=== PATIENT | female | born 1955 | race Caucasian/White ===

== ENCOUNTER → 2016-05-12 | Outpatient (CLI) | payer OTHER ==
[2016-05-12 12:52] LABS: Hemoglobin A1C 5.6 % (4.2-6.1)
== END | disposition home or self-care (01) ==
LOC: LABWHC1 11:57
PROVIDERS: ATTEND Internal Medicine Endocrinology, Diabetes & Metabolism
DX: E03.8 Other specified hypothyroidism (principal); E78.5 Hyperlipidemia, unspecified; R73.03 Prediabetes
CPT/HCPCS: 36415; 80061; 83036; 84443

== ENCOUNTER → 2016-07-09 | Outpatient (CLI) | payer OTHER | END | disposition home or self-care (01) | LOC: LABWHC1 11:22 | PROVIDERS: ATTEND Internal Medicine Endocrinology, Diabetes & Metabolism | DX: E03.8 Other specified hypothyroidism (principal) | CPT/HCPCS: 36415; 84443 ==

== ENCOUNTER → 2016-08-25 | Outpatient (CLI) | payer OTHER | END | disposition home or self-care (01) | LOC: LABWHC1 11:29 | PROVIDERS: ATTEND Internal Medicine Endocrinology, Diabetes & Metabolism | DX: E04.2 Nontoxic multinodular goiter (principal) | CPT/HCPCS: 36415; 84443 ==

== ENCOUNTER → 2016-11-24 | Outpatient (CLI) | payer OTHER | END | disposition home or self-care (01) | LOC: LABWHC1 11:39 | PROVIDERS: ATTEND Internal Medicine Endocrinology, Diabetes & Metabolism | DX: E03.8 Other specified hypothyroidism (principal) | CPT/HCPCS: 36415; 84443 ==

== ENCOUNTER → 2017-05-14 | Outpatient (CLI) | payer OTHER ==
--- NOTE | 2017-05-14 10:48 | MM ---
Reason for exam: additional evaluation requested from abnormal screening. Last mammogram was performed 1 month ago. History: Patient is postmenopausal. Family history of breast cancer in paternal aunt at age 70. Took hormonal contraceptives for 1 year beginning at age 19. Taking estrogen for 15 years beginning at age 34. Physical Findings: Nurse did not find any significant physical abnormalities on exam. MG Work Up Mamm w CAD LT Spot compression CC, spot compression MLO, and LM view(s) were taken of the left breast. Prior study comparison: April 26, 2017, bilateral MG screening mammo w CAD. April 09, 2016, bilateral MG screening mammo w CAD. Area of increased density upper outer left breast is improved. These results were verbally communicated with the patient and result sheet given to the patient on 05/14/17. ASSESSMENT: Benign, BI-RAD 2 RECOMMENDATION: Return to routine screening mammogram schedule for both breasts.
== END | disposition home or self-care (01) ==
LOC: RADMAMWWP 10:03
PROVIDERS: ATTEND Family Medicine
DX: R92.8 Other abnormal and inconclusive findings on diagnostic imaging of breast (principal); Z80.3 Family history of malignant neoplasm of breast
CPT/HCPCS: 77065

== ENCOUNTER → 2017-05-19 | Outpatient (CLI) | payer OTHER ==
--- NOTE | 2017-05-19 15:12 | US ---
EXAMINATION TYPE: US thyroid st tissue head/neck DATE OF EXAM: 05/19/2017 COMPARISON: US CLINICAL HISTORY: E03.8 Other Hypothyroidism, R73.03. F/U previous GLAND SIZE: Right Lobe: 2.8 x 1.1 x 1.1 cm Overall Parenchyma: heterogenous Left Lobe: 3.1 x 0.8 x 1.0 cm Overall Parenchyma: heterogeneous Isthmus Thickness: 0.3 cm NODULES RIGHT: # of nodules measured on right: 2 1. 0.6 X 0.4 x 0.6 cm hypoechoic solid nodule at the lower pole with well-defined margins; This no dule is wider than tall and shows intranodular vascularity. Prior size: 0.6 x 0.4 x 0.5 cm 2. 0.5 X 0.4 x 0.4 cm hypoechoic cystic nodule at the upper pole with poorly defined margins; This n odule is wider than tall and shows intranodular vascularity. Prior size: 0.5 x 0.4 x 0.5 cm LEFT: # of nodules measured on left: 2 1. 0.8 X 0.6 x 0.6 cm hypoechoic solid nodule at the upper pole with well-defined margins; This no dule is wider than tall and shows intranodular vascularity. Prior size: 0.6 x 0.5 x 0.5 cm 2. 0.6 X 0.4 x 0.4 cm hypoechoic cystic nodule at the upper pole with poorly defined margins; This nodule is wider than tall and shows intranodular vascularity. Prior size: 0.5 x 0.4 x 0.4 cm ISTHMUS: # of nodules measured in the isthmus: 1 1. 0.4 cm cystic nodule with well-defined margins; This nodule is wider than tall and shows no int ranodular vascularity. Prior size: 0.4 x 0.2 x 0.4 cm Bilateral neck scanned, Multiple lymph nodes bilateral lateral neck, largest 0.6 cm/ Stable sub-centi meter nodules bilaterally IMPRESSION: Nonspecific thyroid nodularity.
[2017-05-20 00:06] LABS: Hemoglobin A1C 5.5 % (4.0-6.0)
== END | disposition home or self-care (01) ==
LOC: RADUSWWP 13:36
PROVIDERS: ATTEND Internal Medicine Endocrinology, Diabetes & Metabolism
DX: E03.8 Other specified hypothyroidism (principal); R73.03 Prediabetes
CPT/HCPCS: 36415; 76536; 83036; 84443

== ENCOUNTER → 2017-11-18 | Outpatient (CLI) | payer OTHER | END | disposition home or self-care (01) | LOC: LABWHC1 11:43 | PROVIDERS: ATTEND Internal Medicine Endocrinology, Diabetes & Metabolism | DX: E03.8 Other specified hypothyroidism (principal); R73.03 Prediabetes | CPT/HCPCS: 36415; 83036; 84443 ==

== ENCOUNTER → 2017-12-01 | Outpatient (CLI) | payer OTHER ==
[2017-12-01 12:28] LABS: Basophils # (A) 0.1 k/uL (0-0.2); Basophils % (A) 1 %; Eosinophils # (A) 0.2 k/uL (0-0.7); Eosinophils % (A) 2 %; HCT 40.1 % (34.0-46.0); HGB 13.6 gm/dL (11.4-16.0); Lymphocytes # (A) 1.8 k/uL (1.0-4.8); Lymphocytes % (A) 25 %; MCH 28.4 pg (25.0-35.0); MCHC 33.9 g/dL (31.0-37.0); MCV 83.8 fL (80.0-100.0); Mean Platelet Volume 7.3; Monocytes # (A) 0.4 k/uL (0-1.0); Monocytes % (A) 5 %; Neutrophils # (A) 4.5 k/uL (1.3-7.7); Neutrophils % (A) 64 %; Platelet Count 262 k/uL (150-450); RBC 4.78 m/uL (3.80-5.40); RDW 14.7 % (11.5-15.5); WBC 7.1 k/uL (3.8-10.6)
[2017-12-01 16:49] LABS: Vitamin D 25 Hydroxy 13.1 ng/mL (30.0-100.0)
[2017-12-01 18:06] LABS: ACTH 16.2 pg/mL (0.00-45.99)
== END | disposition home or self-care (01) ==
LOC: LABWHC1 11:33
PROVIDERS: ATTEND Internal Medicine Endocrinology, Diabetes & Metabolism
DX: R53.83 Other fatigue (principal)
CPT/HCPCS: 36415; 82024; 82306; 82533; 82607; 84146; 85025

== ENCOUNTER → 2018-02-02 | Outpatient (CLI) | payer OTHER ==
[2018-02-02 12:26] LABS: ALT 41 U/L (9-52); AST 42 U/L (14-36)
[2018-02-02 12:28] LABS: Basophils # (A) 0.1 k/uL (0-0.2); Basophils % (A) 1 %; Eosinophils # (A) 0.2 k/uL (0-0.7); Eosinophils % (A) 3 %; HCT 43.6 % (34.0-46.0); HGB 14.3 gm/dL (11.4-16.0); Lymphocytes # (A) 1.9 k/uL (1.0-4.8); Lymphocytes % (A) 23 %; MCH 27.6 pg (25.0-35.0); MCHC 32.8 g/dL (31.0-37.0); MCV 84.3 fL (80.0-100.0); Mean Platelet Volume 7.6; Monocytes # (A) 0.4 k/uL (0-1.0); Monocytes % (A) 5 %; Neutrophils # (A) 5.5 k/uL (1.3-7.7); Neutrophils % (A) 67 %; Platelet Count 282 k/uL (150-450); RBC 5.17 m/uL (3.80-5.40); RDW 14.2 % (11.5-15.5); WBC 8.2 k/uL (3.8-10.6)
--- NOTE | 2018-02-02 13:01 | XR ---
EXAMINATION TYPE: XR chest 2V DATE OF EXAM: 02/02/2018 COMPARISON: 01/23/2016 HISTORY: 62-year-old female psoriasis vulgaris, on psoriasis medications. TECHNIQUE: Frontal and lateral views FINDINGS: The cardiomediastinal silhouette, aorta, and pulmonary vasculature are within normal limits. Lungs an d pleural spaces are clear. ACDF hardware. IMPRESSION: No acute cardiopulmonary process.
== END | disposition home or self-care (01) ==
LOC: LABWHC1 11:22
PROVIDERS: ATTEND Physician Assistant Medical
DX: L40.0 Psoriasis vulgaris (principal)
CPT/HCPCS: 36415; 71046; 82565; 84450; 84460; 85025

== ENCOUNTER → 2018-04-27 | Outpatient (CLI) | payer OTHER ==
--- NOTE | 2018-04-27 14:24 | MM ---
Reason for exam: screening (asymptomatic). Last mammogram was performed 11 months ago. History: Patient is postmenopausal. Family history of breast cancer in paternal aunt at age 70. Took hormonal contraceptives for 1 year beginning at age 19. Taking estrogen for 15 years beginning at age 34. Physical Findings: A clinical breast exam by your physician is recommended on an annual basis and results should be correlated with mammographic findings. MG 3D Screening Mammo W/Cad Bilateral CC and MLO view(s) were taken. Prior study comparison: May 14, 2017, left breast MG work up mamm w CAD LT. April 26, 2017, bilateral MG screening mammo w CAD. The breast tissue is heterogeneously dense. This may lower the sensitivity of mammography. There are benign appearing round vascular calcifications bilaterally. There is no discrete abnormality. ASSESSMENT: Benign, BI-RAD 2 RECOMMENDATION: Routine screening mammogram of both breasts in 1 year.
== END | disposition home or self-care (01) ==
LOC: RADMAMWWP 10:19
PROVIDERS: ATTEND Family Medicine
DX: Z12.31 Encounter for screening mammogram for malignant neoplasm of breast (principal)
CPT/HCPCS: 77063; 77067

== ENCOUNTER → 2018-05-13 | Outpatient (CLI) | payer BC | END | disposition home or self-care (01) | LOC: LABWHC1 11:39 | PROVIDERS: ATTEND Internal Medicine Endocrinology, Diabetes & Metabolism | DX: E03.8 Other specified hypothyroidism (principal) | CPT/HCPCS: 36415; 84443 ==

== ENCOUNTER → 2018-10-11 | Outpatient (CLI) | payer BC ==
--- NOTE | 2018-10-11 12:59 | US ---
EXAMINATION TYPE: US thyroid st tissue head/neck DATE OF EXAM: 10/11/2018 COMPARISON: US CLINICAL HISTORY: E04.2 Nontoxic multinodular goiter. F/U to previous GLAND SIZE: Right Lobe: 2.4 x 1.1 x 1.0 cm Overall Parenchyma: heterogenous Left Lobe: 2.9 x 0.9 x 1.0 cm Overall Parenchyma: heterogeneous Isthmus Thickness: 0.3 cm NODULES RIGHT: # of nodules measured on right: 2 1. 0.6 X 0.5 x 0.6 cm hypoechoic solid nodule at the lower pole with well-defined margins; This no dule is wider than tall and shows intranodular vascularity. Prior size: 0.6 x 0.4 x 0.6 cm 2. 0.6 X 0.3 x 0.7 cm hypoechoic mixed nodule at the upper pole with poorly defined margins; This n odule is wider than tall and shows no intranodular vascularity. Prior size: 0.5 x 0.4 x 0.4 cm LEFT: # of nodules measured on left: 2 1. 0.7 X 0.5 x 0.6 cm hypoechoic solid nodule at the upper pole with well-defined margins; This no dule is wider than tall and shows intranodular vascularity. Prior size: 0.8 x 0.6 x 0.6 cm 2. 0.8 X 0.5 x 0.6 cm hypoechoic solid nodule at the upper pole with well-defined margins; This nod ule is wider than tall and shows intranodular vascularity. Prior size: 0.6 x 0.4 x 0.4 cm ISTHMUS: # of nodules measured in the isthmus: 1 1. 0.5 cm hypoechoic nodule pole with well-defined margins; This nodule is wider than tall and bony ws no intranodular vascularity. Prior size: 0.4 cm Bilateral neck scanned, no evidence of lymphadenopathy, normal appearing lymph nodes bilaterally. Sta ble sub-centimeter nodules bilaterally. IMPRESSION: Similar size of the multiple bilateral thyroid nodules measuring up to 8 mm. These do not meet size c riteria for fine-needle aspiration and continued follow-up is recommended. Nonenlarged adjacent lymph nodes are incidentally seen.
[2018-10-12 01:10] LABS: Hemoglobin A1C 6.5 % (4.0-6.0)
== END | disposition home or self-care (01) ==
LOC: LABWHC1 11:21
PROVIDERS: ATTEND Internal Medicine Endocrinology, Diabetes & Metabolism
DX: E04.2 Nontoxic multinodular goiter (principal); E03.8 Other specified hypothyroidism; R73.03 Prediabetes
CPT/HCPCS: 36415; 76536; 83036; 84443

== ENCOUNTER → 2019-02-01 | Outpatient (CLI) | payer BC ==
[2019-02-01 12:04] LABS: Basophils % (A) 1 %; Eosinophils # (A) 0.2 k/uL (0-0.7); Eosinophils % (A) 4 %; HCT 40.5 % (34.0-46.0); HGB 13.3 gm/dL (11.4-16.0); Lymphocytes # (A) 1.7 k/uL (1.0-4.8); Lymphocytes % (A) 26 %; MCH 26.8 pg (25.0-35.0); MCHC 32.9 g/dL (31.0-37.0); MCV 81.5 fL (80.0-100.0); Mean Platelet Volume 7.4; Monocytes # (A) 0.4 k/uL (0-1.0); Monocytes % (A) 5 %; Neutrophils # (A) 4.2 k/uL (1.3-7.7); Neutrophils % (A) 63 %; Platelet Count 269 k/uL (150-450); RBC 4.97 m/uL (3.80-5.40); RDW 15.7 % (11.5-15.5); WBC 6.7 k/uL (3.8-10.6)
[2019-02-01 21:43] LABS: Hemoglobin A1C 6.2 % (4.0-6.0)
[2019-02-02 01:46] LABS: Chol/HDL Ratio 4.89; LDL Cholesterol,Calculated 123.2 mg/dL (0.0-131.0); VLDL Calculation 59.8 mg/dL (5.00-40.00)
[2019-02-02 01:47] LABS: African American GFR (CKD) 90.3 (60.0-200.0); Albumin 4.3 g/dL (3.80-4.90); Albumin/Globulin Ratio 2.15 (1.60-3.17); Anion Gap 5.2 mmol/L (4.00-12.00); BUN/Creat Ratio 13.75 Ratio (12.00-20.00); Calcium 9.1 mg/dL (8.7-10.3); Carbon Dioxide 27.8 mmol/L (21.6-31.8); Potassium 4.3 mmol/L (3.5-5.5); Total Bilirubin 0.4 mg/dL (0.3-1.2); Total Protein 6.3 g/dL (6.2-8.2)
== END | disposition home or self-care (01) ==
LOC: LABWHC1 11:17
PROVIDERS: ATTEND Internal Medicine Endocrinology, Diabetes & Metabolism
DX: E11.9 Type 2 diabetes mellitus without complications (principal); E03.8 Other specified hypothyroidism
CPT/HCPCS: 36415; 80053; 80061; 82043; 82570; 83036; 84443; 85025

== ENCOUNTER → 2020-01-22 | Outpatient (CLI) | payer MEDICARE ==
[2020-01-22 20:52] LABS: Hemoglobin A1C 6.4 % (4.0-6.0)
[2020-01-22 21:13] LABS: African American GFR (CKD) 105.4 (60.0-200.0); Albumin 4.3 g/dL (3.80-4.90); Albumin/Globulin Ratio 1.95 (1.60-3.17); Anion Gap 3.8 mmol/L (4.00-12.00); BUN/Creat Ratio 11.43 Ratio (12.00-20.00); Calcium 9.6 mg/dL (8.7-10.3); Carbon Dioxide 29.2 mmol/L (21.6-31.8); Chol/HDL Ratio 4.72; Globulin 2.2 g/dL (1.6-3.3); LDL Cholesterol,Calculated 102.6 mg/dL (0.0-131.0); Non-African American GFR(CKD) 90.9 (60.0-200.0); Potassium 4.4 mmol/L (3.5-5.5); Total Bilirubin 0.5 mg/dL (0.3-1.2); Total Protein 6.5 g/dL (6.2-8.2); VLDL Calculation 68.4 mg/dL (5.00-40.00)
[2020-01-23 00:03] LABS: Urine Creatinine 109.8 mg/dL
== END | disposition home or self-care (01) ==
LOC: LABWHC1 11:43
PROVIDERS: ATTEND Internal Medicine Endocrinology, Diabetes & Metabolism
DX: E11.9 Type 2 diabetes mellitus without complications (principal)
CPT/HCPCS: 36415; 80053; 80061; 82043; 82570; 83036; 84443

== ENCOUNTER → 2020-09-27 | Outpatient (CLI) | payer MEDICARE ==
--- NOTE | 2020-09-27 13:27 | US ---
EXAMINATION TYPE: US thyroid st tissue head/neck DATE OF EXAM: 09/27/2020 COMPARISON: 10/11/2018 CLINICAL HISTORY: E04.2 Nontoxic multinodular goiter. Goiter, F/U GLAND SIZE: Right Lobe: 2.1 x 1.0 x 0.9 cm Overall Parenchyma: heterogenous Left Lobe: 2.6 x 0.7 x 0.8 cm Overall Parenchyma: heterogeneous Isthmus Thickness: 0.2 cm NODULES RIGHT: # of nodules measured on right: 2 1. 0.7 X 0.5 x 0.7 cm, lower, solid or almost completely solid, hypoechoic nodule, which is wider t harris tall, with smooth margins, without echogenic foci. Prior size: 0.6 x 0.5 x 0.6 cm 2. 0.5 X 0.4 x 0.4 cm, upper, solid or almost completely solid, hypoechoic nodule, which is wider t harris tall, with ill-defined margins, without echogenic foci. Prior size: 0.6 x 0.3 x 0.7 cm LEFT: # of nodules measured on left: 2 1. 0.9 X 0.7 x 0.6 cm, upper, mixed cystic and solid, hypoechoic nodule, which is wider than tall, with smooth margins, without echogenic foci. Prior size: 0.8 x 0.5 x 0.6 cm 2. 0.8 X 0.7 x 0.7 cm, upper, mixed cystic and solid, hypoechoic nodule, which is wider than tall, with smooth margins, without echogenic foci. Prior size: 0.7 x 0.5 x 0.6 cm ISTHMUS: # of nodules measured in the isthmus: 1 1. 0.5 cm Cyst Bilateral neck scanned, no evidence of lymphadenopathy. Nodules bilaterally, compared to previous exa m. IMPRESSION: Multinodular thyroid gland. The thyroid gland is small bilaterally. The nodules are relatively stable in comparison to prior exam. The largest measures 9 mm. This does not meet size criteria for fine-ne edle aspiration. Continued sonographic follow-up is recommended.
== END | disposition home or self-care (01) ==
LOC: RADUSWWP 11:46
PROVIDERS: ATTEND Internal Medicine Endocrinology, Diabetes & Metabolism
DX: E04.2 Nontoxic multinodular goiter (principal)
CPT/HCPCS: 76536

== ENCOUNTER → 2020-10-21 | Outpatient (CLI) | payer MEDICARE ==
[2020-10-21 19:47] LABS: African American GFR (CKD) 110.1 (60.0-200.0); Albumin 4.1 g/dL (3.80-4.90); Albumin/Globulin Ratio 1.71 (1.60-3.17); Anion Gap 7.2 mmol/L (4.00-12.00); Carbon Dioxide 28.8 mmol/L (21.6-31.8); Chol/HDL Ratio 4.74; Globulin 2.4 g/dL (1.6-3.3); Total Bilirubin 0.4 mg/dL (0.3-1.2); Total Protein 6.5 g/dL (6.2-8.2)
[2020-10-22 01:15] LABS: Urine Creatinine 146.9 mg/dL
== END | disposition home or self-care (01) ==
LOC: LABWHC1 11:56
PROVIDERS: ATTEND Internal Medicine Endocrinology, Diabetes & Metabolism
DX: E11.9 Type 2 diabetes mellitus without complications (principal); E03.8 Other specified hypothyroidism
CPT/HCPCS: 36415; 80053; 80061; 82043; 82570; 83036; 84443

== ENCOUNTER → 2020-10-21 | Outpatient (CLI) | payer MEDICARE ==
--- NOTE | 2020-10-23 15:01 | MM ---
Reason for exam: screening (asymptomatic). Last mammogram was performed 2 years and 6 months ago. History: Patient is postmenopausal. Family history of breast cancer in paternal aunt at age 70. Took hormonal contraceptives for 1 year beginning at age 19. Taking estrogen for 15 years beginning at age 34. Physical Findings: A clinical breast exam by your physician is recommended on an annual basis and results should be correlated with mammographic findings. MG 3D Screening Mammo W/Cad Bilateral CC and MLO view(s) were taken. Prior study comparison: April 27, 2018, bilateral MG 3d screening mammo w/cad. May 14, 2017, left breast MG work up mamm w CAD LT. There are scattered fibroglandular densities. No significant changes when compared with prior studies. ASSESSMENT: Benign, BI-RAD 2 RECOMMENDATION: Routine screening mammogram of both breasts in 1 year.
== END | disposition home or self-care (01) ==
LOC: RADMAMWWP 11:42
PROVIDERS: ATTEND Family Medicine
DX: Z12.31 Encounter for screening mammogram for malignant neoplasm of breast (principal); Z78.0 Asymptomatic menopausal state; Z80.3 Family history of malignant neoplasm of breast
CPT/HCPCS: 77063; 77067

== ENCOUNTER → 2021-03-10 | Outpatient (CLI) | payer MEDICARE ==
[2021-03-10 22:14] LABS: Microalbumin Creatinine Ratio <30 mg/g Creat (0-30); Urine Creatinine 85.7 mg/dL (28.0-217.0)
[2021-03-10 23:34] LABS: African American GFR (CKD) 88.6 (60.0-200.0); Albumin 4.4 g/dL (3.8-4.9); Albumin/Globulin Ratio 1.86 (1.60-3.17); Anion Gap 13.3 mmol/L (4.00-12.00); BUN/Creat Ratio 9.89 Ratio (12.00-20.00); Blood Urea Nitrogen 7.9 mg/dL (9.0-27.0); Calcium 9.7 mg/dL (8.7-10.3); Carbon Dioxide 23.9 mmol/L (21.6-31.8); Chol/HDL Ratio 5.93 Ratio; Globulin 2.4 g/dL (1.6-3.3); HDL Cholesterol 40.8 mg/dL (40.00-60.00); Non-African American GFR(CKD) 76.5 (60.0-200.0); Potassium 4.7 mmol/L (3.5-5.5); Total Bilirubin 0.4 mg/dL (0.30-1.20); Total Protein 6.7 g/dL (6.2-8.2)
== END | disposition home or self-care (01) ==
LOC: LABWHC1 11:59
PROVIDERS: ATTEND Internal Medicine Endocrinology, Diabetes & Metabolism
DX: E11.9 Type 2 diabetes mellitus without complications (principal)
CPT/HCPCS: 36415; 80053; 80061; 82043; 82570; 83036; 83721; 84443

== ENCOUNTER → 2021-08-11 | Outpatient (CLI) | payer MEDICARE | END | disposition home or self-care (01) | LOC: LABPAT 11:33 | PROVIDERS: ATTEND Orthopaedic Surgery | DX: Z01.812 Encounter for preprocedural laboratory examination (principal); Z22.322 Carrier or suspected carrier of Methicillin resistant Staphylococcus aureus; M17.11 Unilateral primary osteoarthritis, right knee | CPT/HCPCS: 87070 ==

== ENCOUNTER 2021-08-18 10:41 | Day surgery (SDC) | payer MEDICARE ==
[2021-08-13 16:17] VITALS: BMI 26.2
--- NOTE | 2021-08-17 12:42 | HP ---
HISTORY AND PHYSICAL DATE OF SURGERY: 08/18/2021 Amanda Costello is a 66-year-old patient seen with symptomatic right knee osteoarthritis. We discussed options for treatment. She elected to proceed with right total knee arthroplasty. Consent was obtained. Medical clearance was provided by Dr. Sanders. PAST MEDICAL HISTORY: Hypertension, gastroesophageal reflux disease, hypothyroidism. PAST SURGICAL HISTORY: Carpal tunnel release, knee arthroscopy, hysterectomy, cervical fusion. DAILY MEDICATIONS: Synthroid, aspirin, amlodipine, estradiol, lisinopril, omeprazole. ALLERGIES: CODEINE, SULFA. SOCIAL HISTORY: She denies tobacco use. PHYSICAL EVALUATION OF THE RIGHT KNEE: Range of motion is negative 2/3 to 100. Mild effusion. Tenderness, medial joint line. Crepitus, medial and patellofemoral compartments with range of motion. Pain with patellofemoral compression. Ligaments stable. Hip rotation without pain. Distal neurovascular exam is intact. Radiographs of the right knee reveal severe osteoarthritic changes. IMPRESSION: 1. Right knee osteoarthritis. 2. Hypertension. 3. Hyperlipidemia. 4. Hypothyroidism. PLAN: Right total knee arthroplasty. MMODL / IJN: [id number] /
[~2021-08-18 10:41] MED LIST: ACETAMINOPHEN TAB 500 MG TAB PO PRN; DEXAMETHASONE SOD PHOSPHATE 4 MG/ML 1 ML VIAL IV ONE; MELOXICAM 7.5 MG TAB PO PRN; MIDAZOLAM 2 MG/2 ML VIAL IV PRN; ONDANSETRON 4 MG/2 ML VIAL IVP ONE; TRANEXAMIC ACID IN NACL,ISO-OS 1,000 MG in SALINE 1 100ML.BAG IVPB PRN; fentaNYL (PF) 50 MCG/ML 2 ML AMP IV PRN
[2021-08-18] MEDS: LACTATED RINGERS 1,000 ML IV SCH (11:03)
[2021-08-18 11:19] LABS: Glucose,Whole Blood 122 mg/dL (75-99)
[2021-08-18] MEDS ORDERED: MIDAZOLAM 2 MG/2 ML VIAL IV ONE (11:51)
[2021-08-18 12:00] LABS: Prothrombin Time 10.8 sec (9.0-12.0)
--- NOTE | 2021-08-18 12:44 | P.ANPRN ---
Procedure Note - Anesthesia - Nerve Block Performed Right Adductor Canal Infusion Time Out Performed: Yes Date of Procedure: 08/18/21 Procedure Start Time: 11:50 Procedure Stop Time: 12:02 Location of Patient: PreOp Indication: Acute Post-Operative Pain, Requested by Surgeon Sedation Type: Sedate with meaningful contact maintained Preparation: Sterile Prep, Sterile Dressing Position: Supine Catheter: Indwelling Needle Types: Jodi Needle Gauge: 18 Ultrasound used to visualize needle placement: Yes Ultrasound used to observe medication spread: Yes Injectate: 0.5% Ropivacaine (see comment for volume) (15 ml + decadron 4 mg) Blood Aspirated: No Pain Paresthesia on Injection Noted: No Resistance on Injection: Normal Image Stored and Saved: Yes Events: Uneventful and Well Tolerated Right iPack Single Time Out Performed: Yes Date of Procedure: 08/18/21 Procedure Start Time: 12:05 Procedure Stop Time: 12:20 Location of Patient: PreOp Indication: Acute Post-Operative Pain, Requested by Surgeon Sedation Type: Sedate with meaningful contact maintained Preparation: Sterile Prep, Sterile Dressing Position: Left Lateral Catheter: None Needle Types: Facet Needle Gauge: 20 Ultrasound used to visualize needle placement: Yes Ultrasound used to observe medication spread: Yes Injectate: 0.5% Ropivacaine (see comment for volume) (15 ml + decadron 4 mg) Blood Aspirated: No Pain Paresthesia on Injection Noted: No Resistance on Injection: Normal Image Stored and Saved: Yes Events: Uneventful and Well Tolerated
[2021-08-18] MEDS ORDERED: SCOPOLAMINE 1 MG/72 HR PATCH TRANSDERM ONE (13:01)
[2021-08-18] MEDS ORDERED: DEXAMETHASONE SOD PHOSPHATE 4 MG/ML 1 ML VIAL ONE (13:04)
[2021-08-18] MEDS ORDERED: NEOSTIGMINE 1 MG/ML 10 ML VIAL ONE (13:04)
[2021-08-18] MEDS ORDERED: NALOXONE 0.4 MG/ML 1 ML VIAL ONE (13:04)
[2021-08-18] MEDS ORDERED: PROPOFOL 10 MG/ML 20 ML VIAL IV ONE (13:04)
[2021-08-18] MEDS ORDERED: SUCCINYLCHOLINE CHLORIDE 100 MG/5 ML SYR IV ONE (13:04)
[2021-08-18] MEDS ORDERED: fentaNYL (PF) 50 MCG/ML 2 ML AMP ONE (13:04)
[2021-08-18] MEDS ORDERED: TRANEXAMIC ACID IN NACL,ISO-OS 1,000 MG/100 ML BAG ONE (13:04)
[2021-08-18] MEDS ORDERED: ROCURONIUM 10 MG/ML (5 ML VIAL) IV ONE (13:04)
[2021-08-18] MEDS ORDERED: HYDROmorphone (PF) 1 MG/ML ONE (13:04)
[2021-08-18] MEDS ORDERED: MIDAZOLAM 2 MG/2 ML VIAL ONE (13:04)
[2021-08-18] MEDS ORDERED: LIDOCAINE 1% INJ 10MG/ML (20 ML MDV) ONE (13:04)
[2021-08-18] MEDS ORDERED: GLYCOPYRROLATE 0.2 MG/ML 2 ML VIAL ONE (13:04)
[2021-08-18] MEDS ORDERED: ROPIVACAINE 5 MG/ML 30 ML VIAL ONE (13:04)
[2021-08-18] MEDS ORDERED: ROPIVACAINE 0.2%-NS ON-Q PUMP 1,090 MG, EMPTY PAIN BALL 1 EACH MISCELLANE PRN (13:20)
[2021-08-18] MEDS ORDERED: ceFAZolin 1,000 MG in SODIUM CHLORIDE 0.9% 1,000 ML IRRIGATION ONE (13:33)
[2021-08-18] MEDS ORDERED: LACTATED RINGERS 1,000 ML IV ONE ×2 (14:49)
[2021-08-18] MEDS ORDERED: HYDROmorphone 0.2 MG/1 ML SYRINGE IVP PRN (14:49)
[2021-08-18] MEDS ORDERED: HYDROcodone/APAP 5-325MG 1 EACH TAB PO PRN (14:49)
[2021-08-18] MEDS ORDERED: NALOXONE 0.4 MG/ML 1 ML VIAL IV PRN (14:49)
[2021-08-18] MEDS ORDERED: HYDROmorphone 0.5 MG/0.5 ML SYRINGE IVP PRN ×2 (14:49)
[2021-08-18] MEDS ORDERED: ONDANSETRON 4 MG/2 ML VIAL IVP PRN (14:49)
--- NOTE | 2021-08-18 14:49 | P.OP ---
Date of Procedure: 08/18/21 Preoperative Diagnosis: Right knee osteoarthritis Postoperative Diagnosis: Right knee osteoarthritis Procedure(s) Performed: Right total knee arthroplasty Implants: 1. Depuy attune size 5 narrow right cruciate retaining cemented femur 2. Depuy attune size 5 fixed bearing cemented tibial baseplate 3. Cunningham attune size 5 fixed bearing cruciate retaining 8 mm polyethylene tibial insert 4. Cunningham attune 35 mm all polyethylene cemented patella Anesthesia: GETA, regional (Interscalene block+Ipack block), local Surgeon: Rasta Garcia Dielectric Machine Operator #1: Genaro Shipman Estimated Blood Loss (ml): 50 Pathology: other (Bone) Condition: stable Disposition: PACU Indications for Procedure: 66-year-old patient seen with symptomatic right knee osteoarthritis. After treatment options were discussed, she elected to proceed with total knee arthroplasty. Operative Findings: See description of procedure Description of Procedure: Patient was taken to the operative suite after having an adductor canal catheter placed by the department of anesthesia as well as and Ipack block for postoperative pain management. Patient underwent a general anesthetic by the department of anesthesia. Patient was given preoperative IV intake antibiotics and TXA. A well-padded tourniquet was placed about the right lower extremity. The lower extremity was then prepped and draped in the normal sterile orthopedic fashion. The extremity was elevated, a tourniquet was insufflated to 300. A standard anterior incision was made sharply through skin. Dissection was taken down through the subcutaneous soft tissues down to the extensor mechanism. A medial arthrotomy was performed, patella was everted and knee was flexed. There was advanced osteoarthritis noted. I introduced my distal intramedullary femoral drill. I then introduced the distal femoral cutting jig. Jovon GRIDER secured the cutting jig with 2 pins. I held retractors in position while Jovon GRIDER performed the distal femoral resection through the guide area we now removed her distal femoral cutting guide. We now placed our 4-in-1 femoral cutting block and positioned and it was secured with 2 pins by Jovon GRIDER while I held the block in position. The distal femoral finishing was now completed. A proximal tibial cutting guide was positioned. I held the guide in the appropriate position with both hands well Jovon GRIDER inserted stabilizing pins into the guide. Proximal tibial cut was made. We now placed a trial femoral component into position, along with an appropriate size tibial tray and insert. We now took the knee through range of motion and had full extension good flexion and good overall soft tissue balance noted. The patella was everted and stabilized with 2 towel clips held by Jovon GRIDER while I performed a flush with patellar quad tendon utilizing a fresh sawblade. We templated the patella, appropriate drill holes were made. An appropriate trial patella was positioned, knee was taken through full range of motion with the patella tracking very nicely. The trial patella was removed. Drill holes were made through the femoral component. All trial components were removed after marking off the appropriate rotation of the tibia. Retractors were now positioned along the proximal tibia. An appropriate keel punch was made with the appropriate size tibial guide by myself on Jovon GRIDER assisted by holding retractors. At this point appropriate size implants were chosen and opened. The joint was irrigated copiously with pulse lavage mechanical irrigation. The posterior capsule was infiltrated with local analgesic. The wound was irrigated with pulse lavage mechanical irrigation. We mixed antibiotic methylmethacrylate. We placed the knee into flexion. We placed multiple retractors assisted by Jovon GRIDER to expose the proximal tibia. Once the methyl methacrylate was ready, the tibial component was cemented into place removing any excess methylmethacrylate form by both myself and Jovon GRIDER. The femoral component was cemented into place removing the removing any excess methylmethacrylate performed by both myself and Jovon GRIDER. We then inserted the appropriate size polyethylene tibial insert. We made sure that it was locked into position. We took the knee into full extension, and then back in a flexion making sure we had removed any excess methylmethacrylate. The patellar component was then cemented down and secured with clamp. Excess methylmethacrylate removed. We kept the knee in full extension, patellar clamp in position until methylmethacrylate had hardened. Once it had hardened the patellar clamp was removed. The knee was taken through full range of motion. The patella tracked nicely. There was good soft tissue balancing. The tourniquet was now released. Additional hemostasis was achieved via electrocautery. A second gram of TXA was given. The wound again was irrigated with pulse lavage mechanical irrigation. The superficial soft tissues were infiltrated local analgesic. The extensor mechanism was repaired with Ethibond. We checked the repair with range of motion and it was stable. The subcutaneous soft tissues were repaired with Vicryl in layers. The skin was approximated with pernio/Dermabond. Sterile dressings were applied followed by loose web roll and Fabricio bandage. The patient was transferred to a bed, and taken to recovery in stable and satisfactory condition. Jovon GRIDER assisted with this complex procedure.
[2021-08-18] MEDS ORDERED: HYDROmorphone 0.5 MG/0.5 ML SYRINGE IVP ONE ×2 (15:40→15:49)
[2021-08-18 15:51] LABS: Glucose,Whole Blood 142 mg/dL (75-99)
[2021-08-18] MEDS ORDERED: FLUTICASONE 50MCG/SPRAY NASAL 16GM EA NOSTRIL PRN (18:04)
[2021-08-18] MEDS ORDERED: EVOLOCUMAB 140 MG/ML SQ SCH (18:15)
[2021-08-18] MEDS ORDERED: SECUKINUMAB 150 MG/ML SQ SCH (18:15)
--- NOTE | 2021-08-18 18:24 | XR ---
EXAMINATION TYPE: XR knee limited RT DATE OF EXAM: 08/18/2021 COMPARISON: 07/18/2021 HISTORY: Knee surgery TECHNIQUE: 2 views FINDINGS: There is right total knee prosthesis. Components appear in good position. IMPRESSION: No complicating process seen.
[2021-08-18] MEDS: busPIRone HCl 10 MG TAB PO SCH (20:09)
[2021-08-18] MEDS: metFORMIN 500 MG TAB PO SCH (20:10)
[2021-08-18] MEDS ORDERED: CITALOPRAM HYDROBROMIDE 20 MG TAB PO SCH (21:00)
[2021-08-18] MEDS ORDERED: PANTOPRAZOLE 40 MG TABLET PO SCH (21:00)
[2021-08-18] MEDS ORDERED: POTASSIUM CHLORIDE ER 10 MEQ TAB.ER.PRT PO SCH (21:00)
[2021-08-19] MEDS: HYDROcodone/APAP 7.5-325MG 1 EACH TAB PO PRN ×2 (03:14→08:26)
[2021-08-19] MEDS: LACTATED RINGERS 1,000 ML IV SCH (04:35)
[2021-08-19] MEDS ORDERED: THYROID, PORK 30 MG TAB PO SCH (06:30)
[2021-08-19] MEDS ORDERED: LIOTHYRONINE SODIUM 5 MCG TAB PO SCH (06:30)
[2021-08-19 07:35] VITALS: RESP 18; TEMP 98.1
[2021-08-19] MEDS: metFORMIN 500 MG TAB PO SCH (08:27)
[2021-08-19] MEDS: busPIRone HCl 10 MG TAB PO SCH (08:28)
--- NOTE | 2021-08-19 08:36 | P.PN ---
Subjective Progress Note Date: 08/19/21 Principal diagnosis: Status post right total knee arthroplasty Patient was evaluated today at bedside, she is resting very comfortably. She's been up in about a few times to use the restroom. she currently denies any headaches, lightheadedness, chest pain or shortness of breath. The pain is controlled well at this time. We discussed her ALLERGY with codeine, she's had a few doses of Alb[place] and no adverse effects at this time. Objective - Vital Signs Vital signs: Vital Signs Temp 98.1 F 08/19/21 07:33 Pulse 72 08/19/21 08:00 Resp 18 08/19/21 08:00 BP 141/87 08/19/21 07:33 Pulse Ox 92 L 08/19/21 07:33 Intake & Output 08/18/21 08/19/21 08/19/21 18:59 06:59 18:59 Intake Total 2100 100 Output Total 50 Balance 2049 100 Weight 66.6 kg Intake: IV 2049 Intake, IV Titration 50 100 Amount ceFAZolin 2 gm In Sodium 50 100 Chloride 0.9% 50 ml @ 100 mls/hr IVPB Q8H [facility] Rx#: [id number] Output: Estimated Blood Loss 50 Other: Voiding Method Toilet Toilet # Voids 1 3 - Exam Right lower extremity: Incision is clean, dry, and intact. The optifoam dressing is in good condition. There is minimal soft tissue swelling and ecchymosis surrounding the medial and lateral aspects of the incision. Calf is soft, no tenderness with palpation. Plantar flexion, dorsiflexion, EHL, FHL are intact. Sensory exam to light touch throughout the extremity is intact, dorsal pedis pulses 2+. - Labs Labs: Abnormal Lab Results - Last 24 Hours (Table) 08/18/21 08/18/21 Range/Units 11:16 15:44 POC Glucose (mg/dL) 122 H 142 H (75-99) mg/dL Assessment and Plan Assessment: Postoperative day #1 status post right total knee arthroplasty Plan: Pain control, plan for discharge home on Albion 7.5 mg/325 mg DVT prophylaxis, we'll increase aspirin 81 mg twice a day, we'll likely do this for 1 month Wound care instructions were discussed, this to include showering along with icing and elevating Home health care, this including therapy and nursing after discharge Encourage incentive spirometer Discharge planning: Pending patient as well as physical therapy, we'll discharge home today Time with Patient: Less than 30
[2021-08-19] MEDS ORDERED: ENOXAPARIN 40 MG/0.4 ML SYRINGE SQ SCH (09:00)
[2021-08-19] MEDS ORDERED: lisinopriL 20 MG TAB PO SCH (09:00)
[2021-08-19] MEDS ORDERED: amLODIPine 5 MG TAB PO SCH (09:00)
[2021-08-19 12:02] VITALS: BP 144/93; PULSE 100
== END 2021-08-19 12:51 | disposition home health service (06) ==
LOC: OR 10:41 → 5NMEDONC 15:29 → OR 08-19 12:51
PROVIDERS: ATTEND Orthopaedic Surgery
DX: M17.11 Unilateral primary osteoarthritis, right knee (principal); I10 Essential (primary) hypertension; E78.5 Hyperlipidemia, unspecified; E03.9 Hypothyroidism, unspecified; K21.9 Gastro-esophageal reflux disease without esophagitis; E11.9 Type 2 diabetes mellitus without complications; L40.9 Psoriasis, unspecified; R42 Dizziness and giddiness; Z90.710 Acquired absence of both cervix and uterus; Z98.1 Arthrodesis status; F17.200 Nicotine dependence, unspecified, uncomplicated; Z98.890 Other specified postprocedural states; Z79.82 Long term (current) use of aspirin; Z79.890 Hormone replacement therapy; Z79.899 Other long term (current) drug therapy; Z88.5 Allergy status to narcotic agent; Z88.2 Allergy status to sulfonamides
CPT/HCPCS: 97162; 64999; 64448; 76942; 85610; 88300; 73560; 27447; C1776; C1713 ×2; J2250; J1100; J2310; J2710; J0690 ×3; J2405; J2001; J1650; J3010; J1170 ×2; J2795 ×2; J0330; J2704

== ENCOUNTER → 2021-11-03 | Outpatient (CLI) | payer MEDICARE ==
--- NOTE | 2021-11-04 01:04 | XR ---
EXAMINATION TYPE: XR lumbosacral spine min 4V DATE OF EXAM: 11/03/2021 COMPARISON: NONE INDICATION: Pain and numbness for 3 months. Low back pain. TECHNIQUE: 5 views of the lumbar spine. FINDINGS: Moderate levoscoliosis of the lumbar spine with apex at L2-3 level. No significant anterolisthesis or retrolisthesis. No definite vertebral body collapse or acute displaced fracture. Severe degenerative changes at L2-3 level with opposing endplate osteophytosis, markedly degenerated disc and subchondral sclerotic changes. Suspected bilateral L4-5 facet osteoarthropathy. Arterial atherosclerotic calcifications. 5 mm left r enal calculus versus soft tissue calcification. IMPRESSION: Degenerative changes of the lumbar spine as detailed above. Further MRI assessment can be considered if clinically required.
== END | disposition home or self-care (01) ==
LOC: RADXRMAIN 12:27
PROVIDERS: ATTEND Family Medicine
DX: M47.816 Spondylosis without myelopathy or radiculopathy, lumbar region (principal)
CPT/HCPCS: 72110

== ENCOUNTER → 2021-11-14 | Outpatient (CLI) | payer MEDICARE ==
[2021-11-14 17:55] LABS: Basophils # (A) 0.06 X 10*3/uL (0.00-0.10); Basophils % (A) 0.5 %; Eosinophils # (A) 0.14 X 10*3/uL (0.04-0.35); Eosinophils % (A) 1.2 %; HCT 43.6 % (37.2-46.3); HGB 13.3 g/dL (12.0-15.0); Immature Grans, Automated 0.4 %; Lymphocytes # (A) 2.61 X 10*3/uL (0.90-5.00); MCH 24.5 pg (27.0-32.0); MCHC 30.5 g/dL (32.0-37.0); MCV 80.3 fL (80.0-97.0); Monocytes # (A) 0.78 X 10*3/uL (0.20-1.00); Monocytes % (A) 6.6 %; NRBC Per 100 WBC 0 /100 WBCS (0.0-0.0); Neutrophils # (A) 8.24 X 10*3/uL (1.80-7.70); Neutrophils % (A) 69.3 %; Platelet Count 384 X 10*3/uL (140-440); RBC 5.43 X 10*6/uL (4.10-5.20); RDW 20.6 % (11.5-14.5); WBC 11.88 X 10*3/uL (4.50-10.00)
[2021-11-14 18:04] LABS: African American GFR (CKD) 103.9 (60.0-200.0); Non-African American GFR(CKD) 89.7 (60.0-200.0)
== END | disposition home or self-care (01) ==
LOC: LABWHC1 12:57
PROVIDERS: ATTEND Family Medicine
DX: L40.0 Psoriasis vulgaris (principal)
CPT/HCPCS: 36415; 82565; 84450; 84460; 85025; 86480

== ENCOUNTER → 2021-11-14 | Outpatient (CLI) | payer MEDICARE ==
--- NOTE | 2021-11-15 08:49 | US ---
EXAMINATION TYPE: US abdomen complete DATE OF EXAM: 11/14/2021 COMPARISON: NONE CLINICAL HISTORY: RUQ pain R10.11. Nausea, pain. Hx kidney stone. EXAM MEASUREMENTS: Liver Length: 15.8 cm Gallbladder Wall: 0.17 cm CBD: 0.37 cm Spleen: 10.2 cm Right Kidney: 9.3 x 5.6 x 3.9 cm Left Kidney: 11.4 x 5.3 x 5.4 cm Limited due to gas. Pancreas: Limited due to gas. Liver: Appears coarse in echotexture. Increased attenuation. Limited due to gas. Gallbladder: There appears to be cluster of hyperechoic areas versus single hyperechoic area with po sterior shadowing within the gallbladder: 1.6 x 1.7 x 0.8 cm. Area appears to be mobile. Evidence for sonographic Cai's sign: No CBD: Portions seen appear wnl Spleen:Appears wnl Right Kidney: No hydronephrosis or masses seen Left Kidney: No hydronephrosis or masses seen Upper IVC: Appears wnl Abd Aorta: Portions seen appear wnl. Limited due to gas. No aneurysm in the visualized portion of abdominal aorta. IVC is seen near the hepatic dome. Visualiz ed portion of pancreas shows no mass or ductal dilatation. Portions are obscured by overlying bowel g as. Visualized liver heterogeneously hyperechoic without mass or ductal dilatation. There is shadowing la rge gallstone. No pericholecystic fluid or abnormal gallbladder wall thickening. Kidneys show no hydronephrosis. Slightly asymmetric smaller right kidney is noted. Spleen is normal i n size. IMPRESSION: 1. Single mobile gallstone without ultrasound evidence for acute cholecystitis. 2. No hydronephrosis or definitive shadowing renal calculi identified. 3. Heterogeneous hyperechoic appearance of liver consistent with diffuse fatty infiltration and/or un derlying hepatocellular disease.
== END | disposition home or self-care (01) ==
LOC: RADUSWWP 12:13
PROVIDERS: ATTEND Family Medicine
DX: K80.20 Calculus of gallbladder without cholecystitis without obstruction (principal)
CPT/HCPCS: 76700

== ENCOUNTER → 2021-11-20 | Outpatient (CLI) | payer MEDICARE ==
--- NOTE | 2021-11-20 16:26 | MR ---
EXAMINATION TYPE: MR lumbar spine wo con DATE OF EXAM: 11/20/2021 COMPARISON: Lumbar spine x-ray November 03, 2021 HISTORY: low back pain and BLE pain for 3-4 months, no trauma, no surgery TECHNIQUE: Multiplanar, multisequence imaging of the lumbar spine is performed without IV contrast. FINDINGS: There is levoconvex scoliosis centered at L2-L3 level redemonstrated. Sagittal images of th e lumbar spine show vertebral body height to appear satisfactory. Multilevel disc desiccation is seen . Moderate to advanced disc space narrowing L2-L3 level redemonstrated. Mild disc space narrowing L3- L4 and L5-S1 levels redemonstrated The conus medullaris is normal in position and signal ending mid L 1 level. Some heterogeneous Modic type III endplate changes left L2-L3 level noted. Mild to moderate multilevel anterior spurring greatest at L2-L3 level Axial images show T12-L1 and L1-L2 levels to appear within normal limits. Axial images at the L2-L3 level show mild to moderate right greater than left facet arthropathy and l igamentum flavum hypertrophy effacing the right posterolateral thecal sac. There is [id number] broad disc bulge with right paracentral disc protrusion component effacing the anterior thecal sac. T here is mild right-sided neural foraminal narrowing. Left-sided neural foramen is patent. Axial images at L3-L4 level shows mild broad-based disc bulge mildly effacing the anterior thecal sac along with mild facet arthropathy and ligamentum flavum hypertrophy. There is mild asymmetric right- sided anterior inferior neural foraminal narrowing. Axial images at L4-L5 level show mild to moderate facet arthropathy bilaterally. There is small centr al disc protrusion minimally effacing the anterior thecal sac. Patent bilateral neural foramina. Axial images at the L5-S1 level shows [id number] facet arthropathy bilaterally. There is focal central disc protrusion with spinal canal is preserved. Bilateral neural foramina show asymmetric mil [id number] narrowing on the left. Paraspinal muscle bulk is maintained. IMPRESSION: Levoconvex scoliosis with multilevel degenerative changes in the mid to lower lumbar spin e as detailed above.
== END | disposition home or self-care (01) ==
LOC: RADMRIMAIN 15:01
PROVIDERS: ATTEND Family Medicine
DX: M41.86 Other forms of scoliosis, lumbar region (principal); M48.061 Spinal stenosis, lumbar region without neurogenic claudication; M51.26 Other intervertebral disc displacement, lumbar region
CPT/HCPCS: 72148

== ENCOUNTER → 2022-01-05 | Outpatient (CLI) | payer MEDICARE ==
--- NOTE | 2022-01-05 16:05 | CT ---
EXAMINATION TYPE: CT lumbar spine wo con DATE OF EXAM: 01/05/2022 3:58 PM COMPARISON: HISTORY: M41.80 SCOLIOSIS M54.[address] DLP: 946 mGycm Automated exposure control for dose reduction was used. Unenhanced CT of the lumbar spine was performed. Bone and soft tissue window settings are submitted as well as coronal and sagittal reconstructions. L1-L2: Normal disc space height. No disc herniation protrusion or central stenosis. No facet joint arthropathy. No evidence for foraminal encroachment. L2-L3: Severe degenerative disc space narrowing. Severe endplate sclerosis inferior endplate of L2 an d superior endplate of L3. Ventral and dorsal spondylosis. Mild effacement ventral thecal sac without evidence for herniation or protrusion. No central stenosis.Mild bilateral foraminal encroachment. L3-L4: Moderate degenerative disc space narrowing. Mild circumferential disc bulge greatest posterior ly. Mild effacement ventral thecal sac. No evidence for herniation or central stenosis. Foramina are patent. L4-L5: Moderate degenerative disc space narrowing. Mild circumferential disc bulge greatest posterior ly. Mild effacement ventral thecal sac. No evidence for herniation or central stenosis. Foramina are patent. L5-S1: Severe degenerative disc space narrowing and vacuum disc identified. Posterior disc bulge with effacement ventral thecal sac. Left lateral recess stenosis. Mild left-sided foraminal encroachment. No herniation or central stenosis. No evidence for osseous fracture within the [id number]. No bony destructive process seen. IMPRESSION: 1. Multilevel degenerative disc disease as discussed. 2. Left lateral recess stenosis at L5-S1. See above.
== END | disposition home or self-care (01) ==
LOC: RADCTMAIN 15:39
PROVIDERS: ATTEND Orthopaedic Surgery
DX: M51.37 Other intervertebral disc degeneration, lumbosacral region (principal); G95.89 Other specified diseases of spinal cord
CPT/HCPCS: 72131

== ENCOUNTER → 2022-01-07 | Outpatient (CLI) | payer MEDICARE ==
[2022-01-07 09:04] VITALS: BP 125/79; PULSE 65; RESP 18; TEMP 98.5
--- NOTE | 2022-01-07 15:01 | P.PAINPG ---
PQRS Measure Charge Sheet Comment: HISTORY OF PRESENT ILLNESS: 66 yr old female w at side as a referral from Dr. Gayle for severe and chronic LBP secondary to spondylosis, disc bulges, DDD and facet arthropathy without myelopathy for evaluation. Pt states her pain is localized in the mid aspect of the lumbar spine w radiation towards the lower lumbar spine and occasional R & L side paraspinal muscles. Pain also radiates towards either groin and either LEs. It is 4/10 in intensity, constant, achy/ sore in character but escalates as high as 9/10 in intensity w bending/standing/ lifting. Pain is palliated w PT for her R knee, home based stretching regimen, medications ([place] from her PCP), laying supine, heat, repositioning and rest. PMH: Scoliosis, HTN, GERD, Hypothyroidism, MDD PSH: R Total Knee Arthroplasty, SH: 1/2 ppd daily tobacco use, Occasional ETOH use, No illicit drug use. FH: Non contributory All: See list Meds: See list REVIEW OF ORGAN SYSTEMS: CONSTITUTIONAL: No fevers or chills. No recent weight loss. NEUROLOGICAL: + numbness and tingling along the distal e xtremities. No seizure disorders or headaches. MUSCULOSKELETAL: + pain PSYCHIATRIC: Denies current depression or suicidal thoughts. Physical Examinations : Constitutional : Cooperative , not in acute distress . Neurologic : Cranial nerve II to XII intact. No focal neurological deficits. Psychiatric : alert & oriented x 3. Matching mood & appropriate affect. Judgment & insight intact. Musculoskeletal : Cervical Spine Motor strength in the deltoid and biceps: Normal right side. Normal Left side Motor strength biceps and the wrist extensors: Normal right side . Normal left side Motor strength in the triceps muscle: Normal right side. Normal left side Deep tendon reflexes: Normal at the biceps. Normal at Brachioradialis. Normal at triceps Vertebral body tenderness to deep palpation over Cervical facet loading test: positive bilaterally Spurling test: positive bilaterally Neck distraction test: positive bilaterally Arpan sign: positive bilaterally Lumbar spine Motor strength lower extremities ,thigh and legs 5/5 Right side , 5/5 Left side Deep tendon reflexes : Normal Knee Jerk. Normal Ankle Jerk Vertebral body tenderness over L2, L3 Lumbar facet Loading Test: positive Right / positive Left Range of motion of the lumbar spine Flexion 30 degrees, extension 10 degrees Straight Leg Raise test: Left/ Right positive at degree Edna test: positive right / positive left. Severe tenderness over the Sacroiliac joint on the Right / Left sides Gaenslen test: positive bilaterally Seated flexion test: positive bilaterally. Sacral spine : Severe tenderness over the Sacroiliac joint: right side / left side Range of motion: Flexion of the lumbar spine <60 degrees Range of motion: Extension of the lumbar spine <20 degrees Gaenslen's Test positive Rupesh's Test positive Edna test: positive right side / left side Thigh Thrust Test Sacral Thrust Test Imaging: MRI without contrast of the 11/20/21 reviewed Assessment/ Plan : Lumbar DDD , Lumbar spondylosis Recommendation of R TFESI L2-L3. May need a series of injections, up to 3 within a 6 mo period, for optimal pain relief. Risks, benefits of procedure discussed and patient verbalized understanding. Admits to aspirin or anti- coagulant use or medical history of diabetes. Protocol for discontinuation/ continuation of medications xin procedure discussed. Protocol for discontinuation/ continuation of medications xin procedure discussed. All questions answered. I have spent greater than 30 minutes on patient care today. Dr Jade was available by phone for the evaluation of this patient. The time was used to review the medical records including relevant urine studies and Prescription history (MAPs), review of the available imaging, evaluation and examination of the patient, coordination of care with the medical staff and if applicable referring physicians, as well as creation of the medical record Home Medications: Ambulatory Orders Aspirin 81 mg PO DAILY 08/14/21 Citalopram Hydrobromide [CeleXA] 40 mg PO HS 08/14/21 Clobetasol Propionate [Temovate 0.05% Cream] 1 applic TOPICAL DIRECTED PRN 08/14/21 Evolocumab [Repatha Syringe] 140 mg SQ Q14D 08/14/21 Fluticasone Nasal [place] [Flonase Nasal [place]] 2 spray EA NOSTRIL DAILY PRN 0411/28 Liothyronine Sodium [Cytomel] 10 mcg PO MOTUWETHFRSA 08/14/21 Omeprazole [PriLOSEC] 20 mg PO HS 08/14/21 Potassium Chloride ER [K-Dur 10] 10 meq PO HS 08/14/21 Secukinumab [Cosentyx Pen] 300 mg SQ Q30D 08/14/21 Thyroid,Pork [[place] Thyroid] 60 mg PO MOTUWETHFRSA 08/14/21 amLODIPine [Norvasc] 5 mg PO DAILY 08/14/21 busPIRone HCL [Buspar] 30 mg PO BID 08/14/21 lisinopriL [Zestril] 20 mg PO DAILY 08/14/21 metFORMIN HCL ER [Glucophage XR] 500 mg PO HS 08/14/21 Aspirin [Adult Low Dose Aspirin EC] 81 mg PO BID #60 tab 08/19/21 Docusate [Colace] 100 mg PO DAILY #30 capsule 08/19/21 HYDROcodone/APAP 7.5-325MG [[place] 7.5] 1 - 2 each PO Q6HR PRN #42 tab 08/19/21 Controlled Substance Measures - Controlled Substance Measures Is patient prescribed a controlled substance at discharge?: No
== END ==
LOC: PNWHC3 07:49
PROVIDERS: ATTEND Specialist
DX: M51.16 Intervertebral disc disorders with radiculopathy, lumbar region (principal); M48.061 Spinal stenosis, lumbar region without neurogenic claudication; I10 Essential (primary) hypertension; E03.9 Hypothyroidism, unspecified; F32.9 Major depressive disorder, single episode, unspecified; Z88.5 Allergy status to narcotic agent; Z88.2 Allergy status to sulfonamides
CPT/HCPCS: 99211

== ENCOUNTER → 2022-01-07 | Outpatient (CLI) | payer MEDICARE ==
[2022-01-07 19:01] LABS: ALT 23 U/L (8-44); AST 46 U/L (13-35); African American GFR (CKD) 108.4 (60.0-200.0); Albumin 4.2 g/dL (3.8-4.9); Albumin/Globulin Ratio 1.84 (1.60-3.17); Alkaline Phosphatase 105 U/L (41-126); Blood Urea Nitrogen 5.8 mg/dL (9.0-27.0); Calcium 9.6 mg/dL (8.7-10.3); Carbon Dioxide 27.1 mmol/L (20.0-27.5); Chloride 101 mmol/L (96-109); Globulin 2.3 g/dL (1.6-3.3); Glucose 97 mg/dL (70-110); LDL Cholesterol,Calculated 138.7 mg/dL (0.0-131.0); Non-African American GFR(CKD) 93.6 (60.0-200.0); Potassium 4.1 mmol/L (3.5-5.5); Sodium 139 mmol/L (135-145); Total Protein 6.4 g/dL (6.2-8.2)
== END | disposition home or self-care (01) ==
LOC: LABWHC1 09:19
PROVIDERS: ATTEND Internal Medicine Endocrinology, Diabetes & Metabolism
DX: E03.8 Other specified hypothyroidism (principal); E11.9 Type 2 diabetes mellitus without complications
CPT/HCPCS: 36415; 80053; 80061; 82043; 82570; 83036; 84443

== ENCOUNTER 2022-02-10 12:24 | Day surgery (SDC) | payer MEDICARE ==
[~2022-02-10 12:24] MED LIST changes: -ACETAMINOPHEN TAB 500 MG TAB PO PRN; -DEXAMETHASONE SOD PHOSPHATE 4 MG/ML 1 ML VIAL IV ONE; +LACTATED RINGERS 1,000 ML IV SCH; +LIDOCAINE 1% (10MG/ML) FOR IV START INTRADERMA PRN; -MELOXICAM 7.5 MG TAB PO PRN; -MIDAZOLAM 2 MG/2 ML VIAL IV PRN; -ONDANSETRON 4 MG/2 ML VIAL IVP ONE; -TRANEXAMIC ACID IN NACL,ISO-OS 1,000 MG in SALINE 1 100ML.BAG IVPB PRN; -fentaNYL (PF) 50 MCG/ML 2 ML AMP IV PRN
[2022-02-10 12:56] VITALS: TEMP 97
[2022-02-10] MEDS ORDERED: LACTATED RINGERS 1,000 ML IV ONE (13:07)
[2022-02-10 13:08] LABS: Glucose,Whole Blood 107 mg/dL (70-110)
[2022-02-10] MEDS ORDERED: MIDAZOLAM 2 MG/2 ML VIAL ONE (13:27)
[2022-02-10] MEDS ORDERED: methylPREDNISolone ACETATE 40 MG/ML 1 ML VIAL ONE (13:27)
[2022-02-10] MEDS ORDERED: fentaNYL (PF) 50 MCG/ML 2 ML AMP ONE (13:27)
--- NOTE | 2022-02-10 13:41 | P.PCN ---
Date of Procedure: 02/10/22 Procedure(s) Performed: PREOPERATIVE DIAGNOSIS: 1-Lumbar radiculopathy . 2-lumbar degenerative disc disease. 3-lumbar spondylosis with lumbar facet arthropathy.4-lumbar foraminal stenosis POSTOPERATIVE DIAGNOSIS: Same as preoperative diagnoses. PROCEDURE 1. Transforaminal epidural steroid injection under fluoroscopic guidance at right L2-3 level. (Fluoroscopy images stored on file in the radiology Department ) 2. Lumbar epidurogram . ANESTHESIA: Local with 1% lidocaine 3 ml , moderate sedation with intravenous Versed 2 mg and fentanyle 100 micrograms. Sedation start time : 1329 . Sedation. stop time : 1340 . EBL: Minimal PROCEDURE INDICATION: The patient with low back pain and radiculopathy symptoms unresponsive to conservative treatment. PROCEDURE DESCRIPTION / TECHNIQUE: The patient was seen and identified in the preoperative area. Risks, benefits, complications, and alternatives were discussed with the patient. The patient agreed to proceed with the procedure and signed the consent. IV was started, and vital signs were stable. Patient was taken to the OR and time out was completed. The patient was placed in the prone position on procedure table and a pillow was placed under the abdomen to reduce lumbar lordosis. The lumbosacral area was prepped and draped in the usual sterile fashion. Critical pause was taken. Vital signs were closely monitored during the procedure. Conscious sedation was used during the procedure to decrease patient s anxiety. Using oblique fluoroscopy, the chin of the `Dejahy dog at right L2-3 level was identified, and the skin and deeper tissues just below was localized with 1% lidocaine. Subsequently, a 22-gauge 3.5-inch spinal needle was advanced under a tunneled view fluoroscopic guidance just underneath the chin of the `Dejahy dog at the right L2-3 Under lateral fluoroscopy, the needle was then advanced to the posterior border of the interforaminal space. After negative aspiration of CSF and blood and with no paresthesias, 1 mL Isovue 200 contrast dye was injected excellent epidurogram and outlining of the nerve root Subsequently, 3 mL of block solution containing 40 mg Depo-Medrol and 2 mL of 0.9% normal saline PF was injected. Needle was removed . At the end of the procedure, skin was cleansed, and bandages were applied. COMPLICATIONS:none DISPOSITION / PLANS: The patient was placed in a supine position and transferred to the recovery area in a stable condition for observation. There was no evidence of lower extremity motor or sensory deficit after the procedure. Patient was discharged from the recovery room after meeting discharge criteria. Home discharge instructions were given to the patient by the staff. The patient was reexamined prior to discharge.
[2022-02-10] MEDS ORDERED: IV FLUID CONTINUATION 1,000 ML IV ONE (13:47)
[2022-02-10 13:50] VITALS: RESP 15
--- NOTE | 2022-02-10 13:59 | FL ---
EXAMINATION TYPE: FL guided pain mgmt statistic DATE OF EXAM: 02/10/2022 HISTORY: Fluoroscopy time 18 seconds of fluoroscopy provided. IMPRESSION: 1. Fluoroscopy time.
[2022-02-10 14:05] VITALS: BP 134/85; PULSE 62
== END 2022-02-10 14:17 | disposition home or self-care (01) ==
LOC: ORPAIN 12:24
PROVIDERS: ATTEND Specialist
DX: M51.16 Intervertebral disc disorders with radiculopathy, lumbar region (principal); M47.26 Other spondylosis with radiculopathy, lumbar region
CPT/HCPCS: 64483; 99152; J2250; J1030; J3010

== ENCOUNTER → 2022-03-17 | Outpatient (CLI) | payer MEDICARE ==
--- NOTE | 2022-03-18 08:11 | MM ---
Reason for Exam: Screening (asymptomatic). Last mammogram was performed 1 year(s) and 5 month(s) ago. Patient History: Menarche at age 12. First Full-Term at age 22. Left ovary removed at age 34. Right ovary removed at age 34. Hysterectomy at age 34. Postmenopausal. Estrogen, starting at age 34 for 15 years. Hormonal Contraceptives, starting at age 19 for 1 year. Paternal aunt had breast cancer, age 70. Risk Values: Maida 5 year model risk: 1.5%. NCI Lifetime model risk: 5.2%. Prior Study Comparison: 05/14/2017 Left Diagnostic Mammogram, [facility]. 04/27/2018 Bilateral Screening Mammogram, [facility]. 10/21/2020 Bilateral Screening Mammogram, [facility]. Tissue Density: The breast tissue is heterogeneously dense. This may lower the sensitivity of mammography. Findings: Analyzed By CAD. There is a new mass upper outer right breast 6.6 cm from the nipple. Additional views are recommended. There are increasing microcalcifications upper outer left breast. Additional views are also recommended of the left breast. Overall Assessment: Incomplete: need additional imaging evaluation, BI-RAD 0 Management: Diagnostic Mammogram of both breasts. A clinical breast exam by your physician is recommended on an annual basis and results should be correlated with mammographic findings. Electronically signed and approved by: Angel Chiang M.D. Radiologis
== END | disposition home or self-care (01) ==
LOC: RADMAMWWP 10:54
PROVIDERS: ATTEND Family Medicine
DX: Z12.31 Encounter for screening mammogram for malignant neoplasm of breast (principal); Z78.0 Asymptomatic menopausal state; Z80.3 Family history of malignant neoplasm of breast; Z90.721 Acquired absence of ovaries, unilateral
CPT/HCPCS: 77063; 77067

== ENCOUNTER → 2022-03-17 | Outpatient (CLI) | payer MEDICARE ==
[2022-03-17 18:39] LABS: Basophils # (A) 0.04 X 10*3/uL (0.00-0.10); Basophils % (A) 0.4 %; Eosinophils # (A) 0.14 X 10*3/uL (0.04-0.35); Eosinophils % (A) 1.3 %; HCT 44.1 % (37.2-46.3); HGB 14.5 g/dL (12.0-15.0); Immature Grans, Automated 0.5 %; Lymphocytes # (A) 1.64 X 10*3/uL (0.90-5.00); Lymphocytes % (A) 15.2 %; MCH 29.8 pg (27.0-32.0); MCHC 32.9 g/dL (32.0-37.0); MCV 90.6 fL (80.0-97.0); Mean Platelet Volume 10.9 fL (9.5-12.2); Monocytes % (A) 4.6 %; NRBC Per 100 WBC 0 /100 WBCS (0.0-0.0); Neutrophils # (A) 8.43 X 10*3/uL (1.80-7.70); Platelet Count 308 X 10*3/uL (140-440); RBC 4.87 X 10*6/uL (4.10-5.20); RDW 13.8 % (11.5-14.5)
[2022-03-17 18:54] LABS: African American GFR (CKD) 103.9 (60.0-200.0); Non-African American GFR(CKD) 89.7 (60.0-200.0)
== END | disposition home or self-care (01) ==
LOC: LABWHC1 11:16
PROVIDERS: ATTEND Physician Assistant Medical
DX: L40.0 Psoriasis vulgaris (principal)
CPT/HCPCS: 36415; 82565; 84450; 84460; 85025; 86480

== ENCOUNTER → 2022-03-24 | Outpatient (CLI) | payer MEDICARE ==
--- NOTE | 2022-03-24 11:19 | MM ---
Reason for Exam: Follow-up at short interval from prior study. Last screening mammogram was performed less than 1 month ago. Patient History: Menarche at age 12. First Full-Term at age 22. Left ovary removed at age 34. Right ovary removed at age 34. Hysterectomy at age 34. Postmenopausal. Estrogen, starting at age 34 for 15 years. Hormonal Contraceptives, starting at age 19 for 1 year. Paternal aunt had breast cancer, age 70. Risk Values: Maida 5 year model risk: 1.5%. NCI Lifetime model risk: 5.2%. Prior Study Comparison: 10/21/2020 Bilateral Screening Mammogram, [facility]. 03/17/2022 Bilateral MG 3D screening mammo w/cad, [facility]. Tissue Density: The breast tissue is heterogeneously dense. This may lower the sensitivity of mammography. Findings: Analyzed By CAD. The reported mass in the upper outer right breast does not persist with compression. Stable appearing punctate microcalcifications within the upper outer left breast compared to prior exam. Overall Assessment: Probably benign, BI-RAD 3 Management: Diagnostic Mammogram of both breasts in 6 months. A clinical breast exam by your physician is recommended on an annual basis and results should be correlated with mammographic findings. This exam should not preclude additional follow-up of suspicious palpable abnormalities. Results were given to the patient verbally at the time of exam. Electronically signed and approved by: Ronnie Najera D.O.
== END | disposition home or self-care (01) ==
LOC: RADMAMWWP 10:44
PROVIDERS: ATTEND Family Medicine
DX: R92.8 Other abnormal and inconclusive findings on diagnostic imaging of breast (principal); Z80.3 Family history of malignant neoplasm of breast; Z78.0 Asymptomatic menopausal state; Z90.721 Acquired absence of ovaries, unilateral
CPT/HCPCS: 77066; G0279; 77062

== ENCOUNTER → 2022-04-27 | Outpatient (CLI) | payer MEDICARE | END | disposition home or self-care (01) | LOC: LABPAT 11:28 | PROVIDERS: ATTEND Orthopaedic Surgery | DX: Z01.812 Encounter for preprocedural laboratory examination (principal); Z22.322 Carrier or suspected carrier of Methicillin resistant Staphylococcus aureus; M47.816 Spondylosis without myelopathy or radiculopathy, lumbar region; M48.061 Spinal stenosis, lumbar region without neurogenic claudication | CPT/HCPCS: 87070 ==

== ENCOUNTER → 2022-04-30 | Outpatient (CLI) | payer MEDICARE ==
[2022-04-30 18:49] LABS: Basophils # (A) 0.07 X 10*3/uL (0.00-0.10); Basophils % (A) 0.8 %; Eosinophils # (A) 0.15 X 10*3/uL (0.04-0.35); Eosinophils % (A) 1.7 %; HGB 14.3 g/dL (12.0-15.0); Immature Grans, Automated 0.2 %; Lymphocytes % (A) 23.6 %; MCH 29.9 pg (27.0-32.0); MCHC 32.5 g/dL (32.0-37.0); MCV 92.1 fL (80.0-97.0); Mean Platelet Volume 10.2 fL (9.5-12.2); Monocytes # (A) 0.67 X 10*3/uL (0.20-1.00); Monocytes % (A) 7.5 %; NRBC Per 100 WBC 0 /100 WBCS (0.0-0.0); Neutrophils # (A) 5.88 X 10*3/uL (1.80-7.70); Neutrophils % (A) 66.2 %; Platelet Count 342 X 10*3/uL (140-440); RBC 4.78 X 10*6/uL (4.10-5.20); RDW 13.6 % (11.5-14.5); WBC 8.89 X 10*3/uL (4.50-10.00)
[2022-04-30 18:55] LABS: African American GFR (CKD) 103.9 (60.0-200.0); Anion Gap 10.1 mmol/L (10.00-18.00); BUN/Creat Ratio 9.27 Ratio (12.00-20.00); Blood Urea Nitrogen 6.5 mg/dL (9.0-27.0); Calcium 9.8 mg/dL (8.7-10.3); Non-African American GFR(CKD) 89.7 (60.0-200.0); Potassium 4.2 mmol/L (3.5-5.5)
== END | disposition home or self-care (01) ==
LOC: LABPAT 11:39
PROVIDERS: ATTEND Orthopaedic Surgery
DX: Z01.812 Encounter for preprocedural laboratory examination (principal); M48.061 Spinal stenosis, lumbar region without neurogenic claudication; M47.816 Spondylosis without myelopathy or radiculopathy, lumbar region
CPT/HCPCS: 80048; 85025

== ENCOUNTER 2022-05-05 05:44 | Observation (INO) | payer MEDICARE ==
[2022-04-30 09:07] VITALS: BMI 23.8
[~2022-05-05 05:44] MED LIST changes: +ACETAMINOPHEN TAB 500 MG TAB PO PRN; +GABAPENTIN 300 MG CAP PO PRN; -LACTATED RINGERS 1,000 ML IV SCH; -LIDOCAINE 1% (10MG/ML) FOR IV START INTRADERMA PRN; +ONDANSETRON 4 MG/2 ML VIAL IVP PRN; +TRANEXAMIC ACID IN NACL,ISO-OS 1,000 MG in SALINE 1 100ML.BAG IVPB PRN
[2022-05-05] MEDS ORDERED: ONDANSETRON 4 MG/2 ML VIAL IVP ONE (05:48)
[2022-05-05] MEDS ORDERED: LIDOCAINE 1% (10MG/ML) FOR IV START INTRADERMA PRN (05:48)
[2022-05-05] MEDS ORDERED: DEXAMETHASONE SOD PHOSPHATE 4 MG/ML 1 ML VIAL IV ONE (05:48)
[2022-05-05] MEDS: LACTATED RINGERS 1,000 ML IV SCH (06:26)
[2022-05-05] MEDS ORDERED: LACTATED RINGERS 1,000 ML IV ONE (06:26)
--- NOTE | 2022-05-05 06:33 | P.HPOR ---
History of Present Illness H&P Date: 04/27/22 .D:Date: 04/27/22 : 10:53am .T:Title: [facility] History and Physical Date of :[birth year] Age: 66 year Height: 5'2" Weight: 140 lbs BP:124/84 BMI: 25.61 kg/m2 Occupation: Retired VAS: 7 CHIEF COMPLAINT: Recheck lumbar pain DOI: Chronic DOS: None Duration of current treatment regiment: ongoing HISTORY: Xrays No new xrays taken in office Trauma or injury No Work-Related No Pain description aching, sharp. Location posterior Patient notes that their pain radiates to left lower extremity Activity Modification No Hand Dominance right TREATMENTS COMPLETED: 6 weeks of PT completed? Month and Year of last PT date? None current No, attempted a few sessions and this exacerbated her symptoms Physician recommended home exercise completed? Duration of HEP course: Current yes Patient has trialed the physician directed home exercise program for several months without relief of their symptoms. Medications yes List: [place] 5/325mg TID, Flexeril without relief of her symptoms. Alternative interventions Chiropractic: No Massage therapy: No R.I.C.E: No Brace: No Injections Yes (lumbar ANDREINA 20 years ago, recent transforaminal lumbar inj 02/10/2022) Did they help? No RFA: No SUBJECTIVE: Ms. Costello returns to the office for a recheck of their low back and to review the planned lumbar (L5-S1) MIS Transforaminal Lumbar Interbody Fusion. Patient reports no changes to her symptoms since the time of the last appointment. The patient continues to complain of low back pain radiating into the bilateral thighs and into the left lower extremity with associated numbness and tingling through the left S1 distribution. Overall the patient has seen a progressive increase in symptoms since their onset. Ms. Costello symptoms are exacerbated with standing, ambulation, and high impact movements like walking up and down the stairs, due to this they notes that it is increasingly difficult for Ms. Costello to complete many of their daily tasks. Patient is having severe sleep disturbances as well due to their ongoing pain and associated symptoms. Regarding treatments, the patient has previously trialed all abovementioned treatment modalities without relief of her symptoms. Patient denies trialing any other modalities at this time. For their symptoms, the patient has been taking [place] and Flexeril both without relief of her symptoms. Otherwise the patient denies any f/c/sob/cp, no bladder or bowel retention/incontinence, no perineal numbness/tingling, and ambulates independently. HPI: Ms. Costello last returned to the office on 02/18/22 for a recheck of their low back pain. Since the time of the last appointment the patient reports worsening pain and radiculopathy. Overall the patient has seen a progressive increase in symptoms since their onset. Ms. Costello symptoms are exacerbated with prolonged standing and activity, due to this they notes that it is increasingly difficult for Ms. Costello to complete many of their daily tasks. she notes that her daily functionality is very limited at this time. Patient is having severe sleep disturbances as well due to their ongoing pain and associated symptoms. Regarding treatments, the patient has previously trialed all abovementioned treatment modalities without any relief of her symptoms. Patient denies trialing any other modalities at this time. Otherwise the patient denies any f/c/sob/cp, no incision concerns, no bladder or bowel retention/incontinence, no perineal numbness/tingling, and ambulates independently. Ms. Costello last presented to the office on 12/24/2021 for a recheck of their low back pain. Since the time of the last appointment the patient reports continued lumbar pain ongoing for 5-6 months with no known injury or trauma to indicate an exact onset of their symptoms. In addition to their lumbar pain, they do report that it radiates into the bilateral lower extremities, associatedwith numbness and tingling through into the left hip and bilateral lower extremities. Overall the patient has seen a progressive increase in symptoms since their onset. Ms. Costello symptoms are exacerbated with most ADL's involving standing, sitting, and ambulation, due to this they notes that it is increasingly difficult for Ms. Costello to complete many of their daily tasks. Patient is having moderate sleep di sturbances as well due to their ongoing pain and associated symptoms. Patient denies any improvements to her habitus since the time of the last appointment. Regarding treatments, the patient has previously trialed all abovementioned treatment modalities without relief of her symptoms. Patient denies trialing any other modalities at this time. For their symptoms, the patient has been taking [place] and Flexeril both without any relief of her symptoms. Otherwise the patient denies any f/c/sob/cp, no incision concerns, no bladder or bowel retention/incontinence, no perineal numbness/tingling, and ambulates independently. Ms. Costello was last seen on 12/03/2021 regarding chronic back pain that has worsened over the past 4-5 months. Patient denies any trauma or injury. She describes the pain as constant aching with sharp tendencies in the lower back which radiates to the left lower extremity. Patient expresses that the pain numbness/tingling radiating into the left hip and left lower extremity is very bothersome. Patient reports her activities of daily living are very limited and she has a increase in sleep disturbances. Patient states she had attempted physical therapy for a couple sessions, this exacerbated her symptoms. She does state that she has a ANDREINA injection partially 20 years ago which provided slight relief. Patient is currently taking [place] 5/325 TID with mild relief. She denies any f/c/sob/cp, no incision concerns, no bladder or bowel retention/incontinence no perineal numbness/tingling, and ambulates independently. The patients' past social, medical, family, surgical history, as well as review of systems, have been reviewed. Please refer to the Neurosurgery History and Physical form that has been scanned in to our electronic medical record system. 16 points review of systems completed and as stated in HPI, all other systems reviewed are negative. Social History: Reviewed, see appropriate section of the chart for details. P3 Social History: Smoking: current smoker P3 Smoking Amount: 1/2 PPD Alcohol: socially drinks alcohol P3 Family History: Reviewed, see appropriate section of the chart for details. P2 Past Medical History: Reviewed, see appropriate section of the chart for details. K4Kannhby Medications: Rx: amLODIPine 5 mg tablet Ref: 0 Rx: citalopram 40 mg tablet Ref: 0 Rx: estradioL Ref: 0 Rx: lisinopriL 20 mg tablet Ref: 0 Rx: omeprazole Ref: 0 Rx: POTASSIUM 75MG ORAL Tablet, Ref: 0 Rx: Synthroid Ref: 0 Rx: aspirin 81 mg tablet,delayed release Ref: 0 Rx: HYDROcodone 5 mg-acetaminophen 325 mg tablet Ref: 0 Rx: cyclobenzaprine 5 mg tablet Ref: 0 PHYSICAL EXAMINATION: General: Awake, alert, appropriate for age, in no acute distress. HEENT: No unusual neck masses around region of lateral neck triangle, thyroid, supraclavicular groove Heart: Regular rate and rhythm, normal S1, S2 and no murmur/gallop. Lungs: Clear to auscultation bilaterally with no use of accessory muscles. Extremities: Skin warm and dry without acute lesions, coloration, temperature, skin intact, no tenderness or erythema Integument: Hairy patches: ABSENT Dorsal skin dimples: ABSENT Cafe au lait spots: ABSENT Surgical incisions: n/a Palpation: Please see Pain drawing on Intake sheet for further detail. Midline spinal tenderness: No E6 Cervical Tenderness: No E6 Paralumbar tenderness: No E6 Parathoracic tenderness: No E6 Buttocks tenderness: No E6 Sacroilliac Tenderness: No POSTURAL and MUSCULO-SKELETAL EVALUATION: Coronal Balance: NEUTRAL Recumbent testing: Patient is able to lay flat on back Sagittal Balance: NEUTRAL Shoulder Profile: LEVEL Pelvic Girdle: LEVEL Neck ROM: UNRESTRICTED Lumbar ROM: RESTRICTED Shoulder ROM: Symmetrical Hip ROM: Symmetrical Knee ROM: Symmetrical Hands: Normal appearance, symmetrical Feet: Normal appearance, Symmetrical VASCULAR STATUS : LEFT RIGHT Wrist Pulses INTACT INTACT Pedal Pulses (Dors. pedis & post.tibialis) INTACT INTACT Color NORMAL NORMAL Edema Absent Absent NEUROLOGIC EXAMINATION: Mental Status:Awake and alert, fully oriented, with normal attention, concentration and memory, and fluent, appropriate speech. Cranial Nerves: I: Olfactory not tested. II: Visual acuity normal, no visual field deficit noted with confrontation. III,IV: Normal pupillary reflexes & intact extraocular movements without nystagmus. V,: Intact symmetrical facial sensation. VII: Intact symmetrical facial motor movement VIII: Hearing intact. IX,X: Intact gag, swallow, & normal voice. XI: Sternocleidomastoid, trapezius function intact. XII: Tongue midline with normal movements. L'hermitte's Sign: Negative / absent Spurling'Sign: Absent bilaterally. Cubital percussion test: Absent bilaterally. Bal-Tinel sign - Carpal region: Absent bilaterally. Straight Leg Raising: Absent bilaterally. 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 Sensory system (0-4, N/T) Test type RU AMY RL LL Joint-Position 2 2 2 2 Vibration 2 2 2 2 Pain & LT sense 2 2 2 2 Dermatomal Deficit: None None None S1 Gait and Functional Evaluation: Ambulatory aids: Independent Romberg's test: Intact bilaterally Toe heel walk / heel-toe walk intact while maintaining satisfactory balance? yes Squatting/straightening w/o assistance to a min of 60 degree knee flexion? yes Single leg stance: intact Trendelenburg sign negative bilaterally Hand and finger dexterity intact bilaterally? yes Disdiadochokinesis examination negative bilaterally? yes RADIOGRAPHIC STUDIES: XRay Lumbar Multiview (AP, Lateral, Flexion, Extension) with AP pelvis; [facility] [facility] Pelvis: Levoconvex scoliosis centered at L2-L3 level. Vertebral body heights are preserved. Diminished disc height throughout the lumbar spine. Modic type III endplate changes left L2-L3 level noted. no acute osseous abnormalities. Pelvis: The visualized sacrum and iliac wings are within normal limits. CT without contrast from 01/05/[address] [facility] of the Lumbar Spine: Images reviewed with the patient. There is echo of the MRI with spondylosis noted at L2-S1. This is worst at L5-S1 with facet arthropathy, overgrowth and disc collapse with vacuum phenomana. There is foraminal stenosis at these levels from L2-3, L3-4 and L5-S1 noted. Worst at L5-S1 b/l. There is degenerative scoliotic changes noted centered around L2-3 and L3-4 due to lateral collapse. No lateral listhes is at this time. No fractures noted. No lesions noted. MRI /14/[address] [facility] of LumbarSpine: This is reviewed with the patient and demonstrates minor scoliotic curve around 13-17 centered around L2-L3 due to lateral collapse of the disc in this area as well as spondylosis. There is spondylosis at L3-L4 as well which contributed slightly to this curve. The lateral collapse on the right-hand side and causes foraminal stenosis significantly on the right-hand side at L2-L3 and L3-L4 which is severe. This likely describes her symptoms of hip pain as well as groin pain. There is also spondylotic changes at L5-S1 due to disc collapse. There is mild bilateral foraminal stenosis minimal central stenosis with boggy facets. No other fracture dislocation of lesions otherwise noted. IMPRESSION: It was my pleasure to have seen and examined Amanda. I reviewed the patient's clinical syndrome, physical findings, and imaging studies during the appointment today. It is my impression that the patient has a diagnosis of. 1. L5-S1 spondylosis with stenosis and radiculopathy 2. L2-S1 spondylosis with varying degrees of central and foraminal stenosis 3. Lumbar degenerative scoliosis 4. Left lower extremity radiculopathy 5. L2-L3 spondylosis with stenosis 6. left lower extremity weakness I outlined the natural course history without intervention and various interventional options. PLAN: Based on my findings I suggest the following course of action: I discussed treatment options with the patient, including operative and non- operative options, and they have elected to proceed with the following surgical procedure: lumbar (L5-S1) MIS Transforaminal Lumbar Interbody Fusion The indications, risks, benefits, and alternatives to surgery were discussed with the patient at length. Specifically (but not limited to) the risks of infection, stiffness, recurrence of symptoms, need for revision surgery, local numbness, neurovascular injury, and blood clots were discussed. The patient's questions were answered. The decision to proceed was made. Consent will be obtained for the procedure. -Advised patient to continue with supplements, health maintenance, and home exercise programs. Patient expressed understanding and will continue with these modalities. -SMOKING CESSATION FOLLOW UP The patient and I have discussed their current Stop Smoking plan and how the plan has been going. They state they have stopped since (01/24/2022) and that it is going well. They state they have noticed the effects of their plan and are happy with their progress. We discussed again their plan as well as the benefits of quitting. We have adjusted their plan as necessary, and the patient is comfortable with this. We will check back with them on our next visit to see how they are doing with this. Time Spent: 3-10 min Spine Surgery Risk Review Ms. Costello is presenting for evaluation of low back pain. It was my pleasure to have seen and examined Ms. Costello. In our visit today we have had a chance to go over subjective complaints, physical examination findings and treatments including the natural course history without intervention and various interventional options. The patients imaging demonstrates: XRay Lumbar Multiview (AP, Lateral, Flexion, Extension) with AP pelvis; 5 [facility] [facility] Pelvis: Levoconvex scoliosis centered at L2-L3 level. Vertebral body heights are preserved. Diminished disc height throughout the lumbar spine. Modic type III endplate changes left L2-L3 level noted. no acute osseous abnormalities. Pelvis: The visualized sacrum and iliac wings are within normal limits. CT without contrast from 01/05/[address] [facility] of the Lumbar Spine: Images reviewed with the patient. There is echo of the MRI with spondylosis noted at L2-S1. This is worst at L5-S1 with facet arthropathy, overgrowth and disc collapse with vacuum phenomana. There is foraminal stenosis at these levels from L2-3, L3-4 and L5-S1 noted. Worst at L5-S1 b/l. There is degenerative scoliotic changes noted centered around L2-3 and L3-4 due to lateral collapse. No lateral listhesis at this time. No fractures noted. No lesions noted. MRI [id number]/14/[address] [facility] of LumbarSpine: This is reviewed with the patient and demonstrates minor scoliotic curve around 13-17 centered around L2-L3 due to lateral collapse of the disc in this area as well as spondylosis. There is spondylosis at L3-L4 as well which contributed slightly to this curve. The lateral collapse on the right-hand side and causes foraminal stenosis significantly on the right-hand side at L2-L3 and L3-L4 which is severe. This likely describes her symptoms of hip pain as well as groin pain. There is also spondylotic changes at L5-S1 due to disc collapse. There is mild bilateral foraminal stenosis minimal central stenosis with boggy facets. No other fracture dislocation of lesions otherwise noted. On physical exam, Ms. Costello demonstrates severely restricted lumbar ROM due to pain that is limiting her ability to perform functional testing. Patient does also demonstrate left lower extremity radiculopathy with weakness and S1 dermatomal deficit. Overall functionality is very limited at this time. She is ambulating independently. I have explained to the patient that as their condition progresses it will cause further neurological deficits and eventual paralysis. Based on the patients imaging, physical exam, and the rapid progression and disabling nature of their symptoms, at this time I recommend surgery in the form or a: lumbar (L5-S1) MIS Transforaminal Lumbar Interbody Fusion. I discussed the risk and benefits of this procedure at length with Ms. Costello. The patient agreed to considered pursuing the procedure abovementioned. Prior to surgery, she should follow up with her PCP (Cardio, ID, IM etc) for clearance. Questions were invited and answered, and the patient wishes to proceed as outlined below. Currently, I am recommendin.lumbar (L5-S1) MIS Transforaminal Lumbar Interbody Fusion 2.Follow up with PCP for surgical clearance 3.Review of surgical risks and benefits as well as an educational packet on the proposed surgical procedure. Risks: All surgical procedures come with inherent risks, including those related to positioning, anesthesia, intraoperative findings, and postoperative complications. It is important to understand that surgery does not come with any guarantee of a successful outcome as complications and adverse events are always possible. The patient was given a handout in office today discussing the surgical procedure and risks associated with the intervention, both of which were discussed with the patient. These risks include but are not limited to the following: * Experiencing same, different or even worse symptoms in back, neck, arms, or legs compared to before surgery. Requiring further surgery or other forms of treatment presently or at some time in the future at same or other levels of the intended spine surgery. On an extreme but fortunately relatively rare basis severe complication such as blindness, stroke, heart attack, temporary and/or permanent nerve injury, paralysis, coma, or may occur, sometimes without known explanation. Surgical complications may include but are not limited to risk of infection, fluid accumulation in the surgical dissection site, including a seroma or hematoma, that requires additional surgery, wound drainage, bleeding, new numbness or weakness, vision changes/loss, spinal fluid leakage, non-healing and/or infected incision, headaches, difficulty or inability to swallow, hoarseness, hemopneumothorax, pneumothorax, impotence, retrograde ejaculation, vaginal dryness; injury to nerves, spinal cord, blood vessels, lymphatics or other vital organs (i.e., bowel injury, injury to the great vessels); heterotopic bone formation; complications related to the hardware such as screws, rods, cages including misplaced hardware, device failure, instrumentation at the wrong spine level, hardware fracture/breakage, or hardware loosening; vertebral failure of the spinal column above or below the newly placed hardware; retained surgical instrumentations or devices and the need for further surgery. * Medical risks of the planned spine surgery include but are not limited to generalized Infections to the whole body or local areas outside of the surgical site (sepsis), heart attack, bleeding, anaphylaxis, meningitis, seizure, epilepsy, hearing loss, burn long, laceration of the head or other areas of the body, bruising, hypersensitivity of the skin, bladder over dis tension; allergic reaction; shoulder injury related to positioning; fat, blood and air clots to other areas of the body like heart, lungs, brain; failure of internal organs such as lungs, kidneys, liver and excessive bleeding. If blood transfusions are necessary, note that transfusions may cause intolerance reactions such as anaphylaxis or other complex reactions. Despite best efforts, the results of spine surgery might not heal in terms of bone, soft tissues such as skin, fascia, ligaments, and joints. Additionally, in order to achieve best possible results, spine surgery may be carried out beyond the initially planned levels and involve decompression, fusion including insertion of hardware at levels other than the original intended area of surgical interest change some portions of the procedure in order to ensure the best possible outcomes. With spine surgery and spinal fusion, there are different off label uses of instrumentation (devices, implants and hardware) as well as biological substances (bone morphogenic proteins, demineralized bone matrix) as well as using extra bone from allograft sources (i.e. cadaver bone) or autograft (iliac crest bone, ribs, or the spine itself). The patient has been given information about these practices and their inherent risks and benefits. [facility] is an educational center that serves as a training facility for neurosurgical and orthopedic [employer] and Nursing students. Physician assistants are medically trained surgical providers who function in the outpatient, inpatient, and operating room setting under the direct supervision of the attending surgeon. [facility] has multiple operating rooms with single and overlapping rooms running daily. They currently function under the required guidelines as produced by the [facility] Finance Committee with regards to the overlapping rooms and will continue to comply with changes to this policy as they occur. The requirements include and are complied with as follows: (1) the critical portions of the overlapping rooms will not occur at the same time, (2) the attending physician will be physically present during the critical portions of the procedure and immediately available during the entire case, and (3) a back-up attending is designated should the primary attending not be immediately available. The patient has had a chance to review all the listed information, has been given print outs detailing this information, and has had all his/her questions answered to their satisfaction. It was my pleasure to have seen and examined Ms. Costello. In our visit today we have had a chance to go over my understanding of our patient's current condition, the natural course history without intervention and various interventional options. Questions were invited and answered, and the patient wishes to proceed as outlined above. I have seen and examined the patient for 25 minutes and we have spent more than 50% of the time in repeat and detailed counseling about the patient's condition, its natural course history with out and as much as can be predicted with surgery and re-review of various surgical treatment options. In conclusion, Ms. Costello requested we proceed with the above suggested surgery and are willing to accept risks and limitations of the suggested surgery as nature of the disease process and our best attempts at treatment for the condition Thank you again for allowing us to be part of your patient's care. Please don't hesitate to contact me if you have any further questions. Signed and authenticated by: Follow- up: 2 weeks post-op Patient Education: (Informational booklet, instructions, etc) given at today's appointment: Yes .ED:Patient Education: Y Plan at next visit: review CT scan and progress Medications Reviewed: YES In our visit today Ms. Costello and I have had a chance to go over my understanding of the patient's current condition, the natural course history without intervention and various interventional options. Questions were invited and answered, and the patient wishes to proceed as outlined above. I will be sure to keep you updated afterMs. Costello returns here for further follow-up. Thank you again for your referral. Please do not hesitate to contact me if you have any further questions. Signed and authenticated by: Jefferson Lucas Mami Garcia [facility] [address] [place] [address] This message is confidential, intended only for the named recipient(s) and may contain information that is privileged or exempt from disclosure under applicable law. If you are not the intended recipient(s), you are notified that the dissemination, distribution or copying of this information is strictly prohibited. If you received this message in error, please notify the sender then delete this message. Patient verbalizes understanding of the information discussed. # SIGNED BY Jefferson Gayle (GOO)04/27/2022 04:32PM Past Medical History Past Medical History: No Reported History Additional Past Medical History / Comment(s): psoriasis., psoriatic arthritis., borderline diabetes -diet controlled (past hx rx)., vertigo., History of Any Multi-Drug Resistant Organisms: None Reported Past Surgical History: No Surgical Hx Reported Additional Past Surgical History / Comment(s): total right knee, cervical fusion (2004). osteotomy luis knees. Past Anesthesia/Blood Transfusion Reactions: No Reported Reaction Past Psychological History: No Psychological Hx Reported Additional Past Alcohol Use History / Comment(s): I DRINK PER DAY. - Past Family History Mother Family Medical History: Deep Vein Thrombosis (DVT) Medications and Allergies Home Medications Medication Instructions Recorded Confirmed Type Aspirin 81 mg PO DAILY 08/14/21 05/05/22 History Citalopram Hydrobromide [CeleXA] 40 mg PO HS 08/14/21 05/05/22 History Liothyronine Sodium [Cytomel] 5 mcg PO DAILY 08/14/21 05/05/22 History Omeprazole [PriLOSEC] 40 mg PO HS 08/14/21 05/05/22 History Potassium Chloride ER [K-Dur 10] 10 meq PO HS 08/14/21 05/05/22 History Secukinumab [Cosentyx Pen] 300 mg SQ Q30D 08/14/21 05/05/22 History Thyroid,Pork [Young Thyroid] 60 mg PO DAILY 08/14/21 05/05/22 History amLODIPine [Norvasc] 5 mg PO HS 08/14/21 05/05/22 History busPIRone HCL [Buspar] 15 mg PO BID 08/14/21 05/05/22 History lisinopriL [Zestril] 20 mg PO DAILY 08/14/21 05/05/22 History HYDROcodone/APAP 7.5-325MG [[place] 1 tab PO Q6HR PRN 04/30/22 05/05/22 History 7.5] Allergies Allergy/AdvReac Type Severity Reaction Status Date / Time codeine Allergy Rash/Hives Verified 05/05/22 06:21 Sulfa (Sulfonamide Allergy Rash/Hives Verified 05/05/22 06:21 Antibiotics) metformin AdvReac Unknown Nausea Verified 05/05/22 06:21 Physical Examination Osteopathic Statement: *. No significant issues noted on an osteopathic structural exam other than those noted in the History and Physical/Consult.
[2022-05-05 06:51] LABS: Glucose,Whole Blood 112 mg/dL (70-110)
[2022-05-05 07:13] LABS: Prothrombin Time 10.4 sec (9.0-12.0)
[2022-05-05] MEDS ORDERED: ePHEDrine 50 MG/ML 1 ML VIAL ONE (07:25)
[2022-05-05] MEDS ORDERED: NEOSTIGMINE 1 MG/ML 10 ML VIAL ONE (07:25)
[2022-05-05] MEDS ORDERED: SUCCINYLCHOLINE CHLORIDE 200 MG/10 ML VIAL IV ONE (07:25)
[2022-05-05] MEDS ORDERED: ROCURONIUM 10 MG/ML (5 ML VIAL) IV ONE (07:25)
[2022-05-05] MEDS ORDERED: LIDOCAINE 2% INJ 20 MG/ML (2 ML VIAL) ONE (07:25)
[2022-05-05] MEDS ORDERED: KETAMINE 10 MG/ML 20 ML VIAL ONE (07:25)
[2022-05-05] MEDS ORDERED: MIDAZOLAM 2 MG/2 ML VIAL ONE (07:25)
[2022-05-05] MEDS ORDERED: GLYCOPYRROLATE 0.2 MG/ML 2 ML VIAL ONE (07:25)
[2022-05-05] MEDS ORDERED: PROPOFOL 10 MG/ML 20 ML VIAL IV ONE (07:25)
[2022-05-05] MEDS ORDERED: TRANEXAMIC ACID IN NACL,ISO-OS 1,000 MG/100 ML BAG ONE (07:25)
[2022-05-05] MEDS ORDERED: fentaNYL (PF) 50 MCG/ML 2 ML AMP ONE (07:25)
[2022-05-05] MEDS ORDERED: GELATIN SPONGE,ABSORB (LARGE) 1 EACH SPONGE TOPICAL ONE (08:14)
[2022-05-05] MEDS ORDERED: THROMBIN (BOVINE) 5,000 UNIT VIAL TOPICAL ONE (08:14)
[2022-05-05] MEDS ORDERED: SODIUM CHLORIDE IV ONE ×2 (08:18)
[2022-05-05] MEDS ORDERED: HEPARIN SODIUM IV ONE ×2 (08:18)
--- NOTE | 2022-05-05 09:40 | XR ---
Intraoperative/procedural fluoroscopic services were provided for lumbar fusion at L5-S1. Hardware ap pears intact with appropriate alignment. Total fluoroscopy time is 2.04 minutes with a total of 3 sub mitted images to PACS. Please see the operative note for further details.
[2022-05-05] MEDS ORDERED: ONDANSETRON 4 MG/2 ML VIAL IVP PRN (09:50)
[2022-05-05] MEDS ORDERED: SENNOSIDES-DOCUSATE SODIUM 1 EACH TAB PO PRN (09:50)
[2022-05-05] MEDS ORDERED: MAGNESIUM HYDROXIDE 2,400 MG/10 ML CUP PO PRN (09:50)
[2022-05-05] MEDS ORDERED: HYDROcodone/APAP 7.5-325MG 1 EACH TAB PO PRN (09:55)
[2022-05-05] MEDS: HYDROmorphone 0.5 MG/0.5 ML SYRINGE IVP PRN ×4 (10:14→23:19)
--- NOTE | 2022-05-05 12:37 | P.OP ---
Date of Procedure: 05/05/22 Preoperative Diagnosis: 1. L5-S1 spondylosis with stenosis 2. LLE radiculopathy with weakness 3. Mechanical low back pain Postoperative Diagnosis: 1. L5-S1 spondylosis with stenosis 2. LLE radiculopathy with weakness 3. Mechanical low back pain Procedure(s) Performed: 1. L5-S1 posteriolateral and interbody fusion (38671) 2. Insertion of biomechanical device L5-S1 (59869) 3. Instrumentation L5-S1 (98476) 4. Decompression L5-S1, laminectomy, complete facetectomy and foraminotomy (22446) Use of IONM Use of microscope Implants: -Globus Creo screw/jose -Zivation cage 8 mm -MagnatOs, iFactor, Arthrocel, Autograft, allograft Anesthesia: CLEMENTEA Surgeon: Jefferson Gayle Assembly Press Operator #1: Genaro Shipman (Was present and assisted with all aspects of the case from positioing to dressing) Estimated Blood Loss (ml): 100 IV fluids (ml): 500 Urine output (ml): 250 Pathology: none sent Condition: stable Disposition: PACU Indications for Procedure: Ms. Costello is presenting for evaluation of low back pain. It was my pleasure to have seen and examined Ms. Costello. In our visit today we have had a chance to go over subjective complaints, physical examination findings and treatments including the natural course history without intervention and various interventional options. The patients imaging demonstrates: XRay Lumbar Multiview (AP, Lateral, Flexion, Extension) with AP pelvis; [facility]: Levoconvex scoliosis centered at L2-L3 level. Vertebral body heights are preserved. Diminished disc height throughout the lumbar spine. Modic type III endplate changes left L2-L3 level noted. no acute osseous abnormalities. Pelvis: The visualized sacrum and iliac wings are within normal limits. CT without contrast from 01/05/2022 at [facility] of the Lumbar Spine: Images reviewed with the patient. There is echo of the MRI with spondylosis noted at L2-S1. This is worst at L5-S1 with facet arthropathy, overgrowth and disc collapse with vacuum phenomana. There is foraminal stenosis at these levels from L2-3, L3-4 and L5-S1 noted. Worst at L5-S1 b/l. There is degenerative scoliotic changes noted centered around L2-3 and L3-4 due to lateral collapse. No lateral listhesis at this time. No fractures noted. No lesions noted. MRI kuratprt70/14/2022 at [facility]: This is reviewed with the patient and demonstrates minor scoliotic curve around 13-17 centered around L2-L3 due to lateral collapse of the disc in this area as well as spondylosis. There is spondylosis at L3-L4 as well which contributed slightly to this curve. The lateral collapse on the right-hand side and causes foraminal stenosis significantly on the right-hand side at L2-L3 and L3-L4 which is severe. This likely describes her symptoms of hip pain as well as groin pain. There is also spondylotic changes at L5-S1 due to disc collapse. There is mild bilateral foraminal stenosis minimal central stenosis with boggy facets. No other fracture dislocation of lesions otherwise noted. On physical exam, Ms. Costello demonstrates severely restricted lumbar ROM due to pain that is limiting her ability to perform functional testing. Patient does also demonstrate left lower extremity radiculopathy with weakness and S1 dermatomal deficit. Overall functionality is very limited at this time. She is ambulating independently. I have explained to the patient that as their condition progresses it will cause further neurological deficits and eventual paralysis. Based on the patients imaging, physical exam, and the rapid progression and disabling nature of their symptoms, at this time I recommend surgery in the form or a: lumbar (L5-S1) MIS Transforaminal Lumbar Interbody Fusion. I discussed the risk and benefits of this procedure at length with Ms. Costello. The patient agreed to considered pursuing the procedure abovementioned. Prior to surgery, she should follow up with her PCP (Cardio, ID, IM etc) for clearance. Questions were invited and answered, and the patient wishes to proceed as outlined below. Currently, I am recommendin.lumbar (L5-S1) MIS Transforaminal Lumbar Interbody Fusion Description of Procedure: The patient was seen and examined in the preoperative area. All preoperative protocols were followed. Informed consent was obtained risks and benefits of the procedure were discussed at length. Risks including bleeding infection damage to the surrounding tissue and risk of reoperation were discussed with the patient. Risk of anesthesia up to and including was a discussed with the patient. These are outlined in the risk review. They were willing to accept these risks and all the risks of surgery. The patient was given a weight-based dose of antibiotics in the form of 2 g Ancef. The patient was seen and evaluated by the anesthesia team who deemed them fit for surgery. The site was marked, the patient was willing to proceed with the procedure. The patient was transferred to the operative suite by the Department of anesthesia. They were then drifted off to sleep by the department anesthesia and GETA was performed. The patient tolerated this well. Jones catheter was placed by nursing staff, a-traumatically. Once confirmation of lines and ventilation the patient was transferred to a prone Quang table very carefully. All bony prominences including wrists, elbows, axilla, chest, hips, and thighs, and feet were padded very well. Special attention was paid to the genitalia, and these were padded accordingly. SCDs were placed on bilateral lower extremities and were connected. Arms were well padded and placed on arm boards up and out in the 90/90 position. Once in position, again we confirmed good ventilation capabilities and that lines were running appropriately. The patients Lumbar spine was then exposed. 1010s were placed outlining the incision site. Standard alcohol was used to clean the incision site and allowed to dry. C-arm was used to needle localize the pedicles at L5-S1 and bio-bhavesh the patient and confirm level for incision which was marked with a skin marker. Operative briefing was performed with all teams and everyone in agreement to proceed. The patient was then prepped and draped in a normal sterile fashion. Timeout was then performed, and all parties agreed with the procedure to be performed. C arm was then used to target pedicles bilaterally at L5-S1. Jamshidi was used and bi-planar fluoroscopy was used to access L5 pedicles. Once accessed wires were placed in their void. This was repeated at S1 bilaterally. Skin incision was then made along these wires and perfect scalpel was used over the wire to create a path and measure screw length. Screws were then placed over wires on the contralateral side. Once screw was at the back of the body wire was removed. The screws were confirmed to be in good position on AP and lateral. We then tested screws and they all tested above 20 mA. Attention was then turned to interbody fusion at L5-S1. Tubular retractor system was placed at the interspace of L5-S1 using biplanar c arm. Once in position and dilated up to 26mm tube it was locked to the bed and confirmed in good position. Microscope was then brought in for visualization. Limited myomectomy was performed and laminectomy, complete facetectomy and foraminotomy performed at L5-S1 using high speed maty and Kerrison rongure. The ligamentum was removed and dural sac decompressed. Exiting and traversing roots visualized and decompressed. Neural elements were then protected, and disc space accessed with an osteotome. Sequential shaving then done under lateral imaging and complete discectomy performed using carlos, pituitary and curette. Once good bleeding endplates accomplished and good height pentecostalism with trials, a combination of autograft, allograft and synthetic placed anterior in the disc space. The cage was then selected and impacted into place under lateral imaging. The cage was then expanded restoring height, lordosis and alignment. The cage was backfilled with bone graft through a funnel. The crewman armoured personnel carrier [id number] removed and area inspected. Good cage placement, stable cage and no injuries. Area was irrigated copiously, and meticulous hemostasis achieved. The tubular retractor was then removed under direct visualization. Screws were then selected and placed over the previously placed wires on the ipsilateral side. This was done in the fashion described above. Screws were then tested, and all tested above 20 mA. Shells were then placed on the tabs. Jose length was then measured, and rods selected. They were then placed through the MIS tabs, subfascial. These were then locked into place with set screws and final tightened. Jose holders removed and images taken showing good placement of rods good lordosis and pentecostalism of height. Tabs were broken off. Wounds were then copiously irrigated with NSS. Gateway used for TP decortication and mixture of MagnatOs, allograft and autograft packed posterolateral. Facia was then closed with 0 Vircyl on a Scorpion suture passer for MIS closure. Deep subq closed with 0 Vicryl. Superficial subq closed with 2-0 Vicryl and skin with aura. Wound edges approximated very well. Wound was then cleaned with alcohol and dried. Wounds dressed in Optifoam dressings. The patient was then transferred off the table back to their hospital bed a- traumatically. They were extubated by the department of anesthesia. They were then transferred to PACU in stable condition having tolerated the procedure with no complications.
[2022-05-05] MEDS: HYDROcodone/APAP 10-325MG 1 EACH TAB PO PRN ×2 (13:07→21:03)
[2022-05-05] MEDS: ACETAMINOPHEN TAB 325 MG TAB PO SCH ×3 (13:07→23:02)
[2022-05-05] MEDS: HEPARIN SODIUM,PORCINE/PF 5,000 UNIT/0.5 ML SYRINGE SQ SCH ×2 (14:17→21:03)
[2022-05-05] MEDS: CYCLOBENZAPRINE 5 MG TAB PO SCH (16:00)
--- NOTE | 2022-05-05 16:09 | CT ---
EXAMINATION TYPE: CT lumbar spine wo con CT DLP: 493.6 mGycm, Automated exposure control for dose reduction was used. DATE OF EXAM: 05/05/2022 3:45 PM COMPARISON: CT lumbar spine 01/05/2022, lumbar spine fluoroscopic images 05/05/2022. CLINICAL INDICATION:Female, 66 years old with history of s/p TLIF L5-S1; PHH, S/P TLIF L5-S1 TECHNIQUE: Multiple axial images were obtained from the midportion of T11 through the sacroiliac cindy nts. Soft tissue and bone windows in coronal and sagittal planes were obtained and reviewed. FINDINGS: Alignment: There are 5 lumbar type vertebral bodies. No spondylolisthesis. Levoscoliotic curvature of the lumbar spine with apex at L2-L3. Bone: No evidence of fracture is identified. Postsurgical changes with bilateral pedicular screws an d rods and disc fusion cage involving L5-S1. Few foci of gas of the surgical site related to surgery. Hardware appears intact with appropriate alignment. Multilevel degenerative disc disease at L2-L3 an d T9-T10 with disc space narrowing, endplate sclerosis, vacuum disc disease, and osteophyte formation . Prominent posterior disc osteophyte at L2-L3 and L4-L5. Discs: T12-L1: No spinal canal or neural foraminal stenosis is identified. L1-L2: No spinal canal or neural foraminal stenosis is identified. L2-L3: Posterior disc osteophyte complex with mild effacement of the anterior thecal sac. Mild right neuroforaminal stenosis. The left neural foramen is patent. L3-L4: Broad base disc bulge with mild effacement of the anterior thecal sac. No neuroforaminal steno sis. L4-L5: Broad-based disc bulge with minimal effacement of the anterior thecal sac. No neural foramina l stenosis. L5-S1: No spinal canal or neural foraminal stenosis is identified. Other: Atherosclerotic calcification of the abdominal aorta. Postcholecystectomy changes. Bilateral l ateral lower lobe streaky atelectasis. No fluid collection identified. Hyperdense material posterior to the right SI joint which may represent cement. IMPRESSION: 1. Postsurgical changes from L5-S1 fusion. Hardware appears intact with appropriate alignment. No org anized fluid collection. 2. Mild multilevel degenerative disc disease most pronounced at L2-L3 with mild spinal canal stenosis .
[2022-05-05] MEDS ORDERED: PANTOPRAZOLE 40 MG TABLET PO SCH (21:00)
[2022-05-05] MEDS ORDERED: POTASSIUM CHLORIDE ER 10 MEQ TAB.ER.PRT PO SCH (21:00)
[2022-05-05] MEDS ORDERED: amLODIPine 5 MG TAB PO SCH (21:00)
[2022-05-05] MEDS ORDERED: CITALOPRAM HYDROBROMIDE 20 MG TAB PO SCH (21:00)
[2022-05-05] MEDS: busPIRone HCl 5 MG TAB PO SCH (21:03)
[2022-05-05] MEDS: GABAPENTIN 100 MG CAP PO SCH (21:03)
--- NOTE | 2022-05-06 00:35 | CONS ---
CONSULTATION REASON FOR CONSULTATION: Advice regarding multiple medical issues including psoriatic arthritis. HISTORY OF PRESENT ILLNESS: This is a 66-year-old woman with past medical history of psoriatic arthritis, borderline diabetes, being followed by Dr. Sanders in the outpatient setting, underwent L5-S1 posterolateral interbody fusion. The patient tolerated the procedure well. There is no history of any fever, rigors. No history of any headache, loss of consciousness, or seizures. PAST MEDICAL HISTORY: Reviewed, include DJD, psoriasis. Rest of the history and rest of the chart is reviewed. HOME MEDICATIONS: Reviewed include Zestril. Doses and rest of medications noted. ALLERGIES: Reviewed include codeine. FAMILY HISTORY: History of DVT. SOCIAL HISTORY: History of smoking. REVIEW OF SYSTEMS: A 14-point review is negative except as mentioned earlier. PHYSICAL EXAMINATION: VITAL SIGNS: Pulse is 78, blood pressure n, respirations 14. HEENT: Conjunctivae normal. NECK: No jugular venous distention. CARDIOVASCULAR: S1, S2. RESPIRATIONS: Breath sounds diminished at the bases. No rhonchi. No crackles. ABDOMEN: Soft. LEGS: No edema. NERVOUS SYSTEM: No focal deficits. SKIN: No ulcer, rash, bleeding. JOINTS: No active deforming arthropathy. LABS: Accu-Cheks 112. ASSESSMENT: 1. Status post L5-S1 possible lateral interbody fusion for degenerative joint disease. 2. Hypertension. 3. Psoriasis. 4. History of nicotine dependence. 5. Family history of deep venous thrombosis. RECOMMENDATIONS: This is a 66-year-old woman, presented after surgery. At this time, I recommend to resume the home medications. Closely monitor. DVT prophylaxis. Incentive spirometry. Recommend close followup with Dr. Sanders. Thank you for the consult. MMODL / IJN: [id number] / AVINASH
[2022-05-06] MEDS: HYDROcodone/APAP 10-325MG 1 EACH TAB PO PRN ×2 (02:44→09:55)
[2022-05-06] MEDS: LACTATED RINGERS 1,000 ML IV SCH (04:02)
[2022-05-06] MEDS: HYDROmorphone 0.5 MG/0.5 ML SYRINGE IVP PRN ×2 (04:03→07:34)
[2022-05-06] MEDS: ACETAMINOPHEN TAB 325 MG TAB PO SCH (05:54)
[2022-05-06] MEDS: busPIRone HCl 5 MG TAB PO SCH (07:31)
[2022-05-06] MEDS: GABAPENTIN 100 MG CAP PO SCH (07:31)
[2022-05-06] MEDS: CYCLOBENZAPRINE 5 MG TAB PO SCH (07:31)
[2022-05-06] MEDS: HEPARIN SODIUM,PORCINE/PF 5,000 UNIT/0.5 ML SYRINGE SQ SCH (07:32)
[2022-05-06 07:34] VITALS: BP 138/81; PULSE 70; RESP 20; TEMP 98.5
[2022-05-06] MEDS ORDERED: ASPIRIN 81 MG PO SCH (09:00)
[2022-05-06] MEDS ORDERED: lisinopriL 20 MG TAB PO SCH (09:00)
[2022-05-06] MEDS ORDERED: LIOTHYRONINE SODIUM 5 MCG TAB PO SCH ×2 (09:00→20:00)
[2022-05-06] MEDS ORDERED: THYROID, PORK 30 MG TAB PO SCH (09:00)
--- NOTE | 2022-05-06 09:49 | P.PN ---
Subjective Progress Note Date: 05/06/22 patient seen and examined she is doing well today. She has been up and walking. She does complain of pain in her back in her thighs however it seems better. She is otherwise been up and about and doing fairly well tolerating her diet pain is controlled and she would like to go home. She denies any perineal numbness or tingling denies any other symptoms at this time. Objective - Vital Signs Vital signs: Vital Signs Temp 98.5 F 05/06/22 07:25 Pulse 70 05/06/22 07:25 Resp 20 05/06/22 07:25 BP 138/81 05/06/22 07:25 Pulse Ox 94 L 05/06/22 07:25 FiO2 Intake & Output 05/05/22 05/06/22 05/06/22 18:59 06:59 18:59 Intake Total 1570 Output Total 325 Balance 1245 Intake: IV 1570 ceFAZolin 2 gm In Sodium 50 Chloride 0.9% 50 ml @ 100 mls/hr IVPB ONCE PRN Rx# :[id number] Output: Urine 225 Estimated Blood Loss 100 Other: Voiding Method Toilet # Voids 2 - Exam Physical Exam: -Patient is alert and oriented 3 appears well-nourished well-hydrated is in no acute distress. They do not appear septic. -There is TTP around the incisions [-Incision is CDI, no EEE, no drainage] -Upper extremities show [5] out of 5 strength in all major muscle groups. [##EXCEPT] -Lower extremities with [5] out of 5 strength in all major muscle groups [##EXCEPT] -There is [FROM] that is [painless] of the b/l UE and LE in all major joints. [log roll] [SLR] [EXCEPT] -They are intact to light touch sensation in C5 to T1 and L2 to S1 nerve distribution. -DTR [2]/4 all upper and lower extremities -Patient has palpable distal pulses all 4 ext -Compartments are soft and compressible. -Patient shows a negative Grisel's [-Neg Hoffmans b/l] [-Neg Clonus b/l] [-Neg babinski b/l] Cranial nerves II through XII are grossly intact. Assessment and Plan Assessment: 66-year-old female postop day 1 L5-S1 minimally invasive T lift Plan: -Appreciate cisco consultant and team management. -Activity: Ambulate QID, OOB all meals, up and about, limit lifting bending twisting to less than 5 lbs. Use walker or cane if needed for stability. -Daily PT/OT, increase ambulation strength and balance. -LSO brace when up and about at home -Pain control: [Adequate at this time] -Meds: [reviewed] -GI ppx: senna, Miralax -DC duke when up and about, bedside commode if needed -DVT PPX: early ambulation -Hygiene: Shower today. Maintain dressing clean and dry. Meticulous cleaning after BMs away from incision sit -Encourage IS 10x/hr -Dispo: home today with home health care
--- NOTE | 2022-05-06 09:58 | P.PN ---
Subjective Progress Note Date: 05/06/22 Principal diagnosis: Lumbar spondylosis with stenosis Bilateral lower extremity radiculopathy Patient seen and examined this morning. Patient was sitting up in bed. Pain is managed on current regimen. She does have complaint of bilateral upper thigh pain. Surgical dressing is clean dry and intact. Instructed patient to work with physical therapy and to be up in chair for all meals. Patient is requesting for discharge today. She has been afebrile denies nausea/vomiting or chest pain. Objective - Vital Signs Vital signs: Vital Signs Temp 98.5 F 05/06/22 07:25 Pulse 70 05/06/22 07:25 Resp 20 05/06/22 07:25 BP 138/81 05/06/22 07:25 Pulse Ox 94 L 05/06/22 07:25 FiO2 Intake & Output 05/05/22 05/06/22 05/06/22 18:59 06:59 18:59 Intake Total 1570 Output Total 325 Balance 1245 Intake: IV 1570 ceFAZolin 2 gm In Sodium 50 Chloride 0.9% 50 ml @ 100 mls/hr IVPB ONCE PRN Rx# :[id number] Output: Urine 225 Estimated Blood Loss 100 Other: Voiding Method Toilet # Voids 2 - Exam Physical Examination General: The patient is awake and alert, in no acute distress Skin: Skin is warm and dry with no obvious rashes or lesions. Hairy patches absent, no dorsal skin dimples, no cafe au lait spots. Surgical incisions to lumbar region, dressings CDI Eye: Pupils are equal, round and reactive to light, extra-ocular movements are intact; there is normal conjunctiva bilaterally. Neck: The neck is supple, there is no tenderness and ROM intact. Cardiovascular: There is a regular rate and rhythm. No murmur, rub or gallop is appreciated. Respiratory: Lungs are clear to auscultation, respirations are non-labored, breath sounds are equal. Gastrointestinal: Soft, non-distended, non-tender abdomen. Back: There is no tenderness to palpation in the midline, paralumbar, parathoracic or buttocks region. There is no obvious deformity . Musculoskeletal: ROM limited secondary to pain and stiffness from surgical procedure. Muscle strength in all major muscle groups of bilateral upper extremities 5/5, bilateral lower extremities 4/5. Neurological: CN 2-12 intact. There are no obvious motor or sensory deficits. Movement and coordination equal and intact. Sensory exam to light touch intact C5-T1 and intact from L2-S1. Reflexes 2/4 in bilateral upper and lower extremities. Negative Hoffmans, babinski, and clonus signs. Psychiatric: Cooperative, appropriate mood & affect, normal judgment. Assessment and Plan Assessment: Post-Op day 1: Minimally invasive L5-S1 TLIF Lumbar spondylosis with stenosis Bilateral lower extremity radiculopathy Plan: -Appreciate as400 consultant and team management. -Activity: Ambulate QID, OOB all meals, up and about, limit lifting bending twisting to less than 5 lbs. Use walker or cane if needed for stability. -Daily PT/OT, increase ambulation strength and balance. -Brace when up and about, not needed in bed or chair -Pain control: Adequate at this time -Meds: reviewed -GI ppx: senna, Miralax -DVT PPX: OK to restart Heparin tonight -Hygiene: Shower today. Maintain dressing clean and dry. Meticulous cleaning after BMs away from the incision site -Encourage IS 10x/hr -Dispo: Anticipate discharge home today with homecare *I reviewed and discussed this case with my attending Dr. Gayle, whom has reviewed this chart and films and is in agreement with assessment and plan of care as outlined above. I have personally seen and examined the patient, performed the documentation and the assessment and plan as written. Number of minutes spent on the visit: 15m.
--- NOTE | 2022-05-06 10:19 | P.DS ---
Providers Date of admission: 05/06/22 07:28 Expected date of discharge: 05/06/22 Attending physician: Jefferson Gayle DO Consults: 05/05/22 09:54 Consult Physician Routine Consulting Provider: Lamine Ramirez Reason/Comments: Medical Management Do you want consulting provider notified?: Yes Primary care physician: Zuly [facility] Course: Hospital Course: The patient was evaluated preoperatively and found to have the diagnosis of lumbar spondylosis with stenosis. They underwent appropriate preoperative care and were willing to undergo the intended procedure. They underwent a successful minimally invasive L5-S1 TLIF, were recovered appropriately and sent to the floor. While on the floor they worked with physical therapy, occupational therapy and nursing to enhance their recovery experience. Their pain was well controlled through their stay and they were started on appropriate medications, DVT ppx modalities, activity and dietary needs. Daily labs were monitored closely, and transfusions were only used when necessary. Medicine as well as other consulting services have made their input and have helped with our team approach and multidisciplinary care. PT milestones have been met and passed and they have made the recommendation of home for this patient and treating providers agree with this care path. The patient will be discharged home with appropriate medications, instructions and follow-up information and in stable condition. Patient Condition at Discharge: Good Plan - Discharge Summary Discharge Rx Participant: No New Discharge Prescriptions: New Gabapentin [Neurontin] 200 mg PO TID #90 cap Sennosides/Docusate Sodium [Senna Plus 8.6-50 mg Tablet] 1 each PO DAILY PRN #20 tablet PRN Reason: Constipation cefaDROXiL [Duricef] 500 mg PO Q12HR 3 Days #6 cap Cyclobenzaprine [Flexeril] 5 mg PO TID #90 tablet HYDROcodone/APAP 10-325MG [Wenham 10-325] 1 tab PO Q6HR PRN #56 tab PRN Reason: Pain No Action lisinopriL [Zestril] 20 mg PO DAILY Liothyronine Sodium [Cytomel] 5 mcg PO DAILY Aspirin 81 mg PO DAILY amLODIPine [Norvasc] 5 mg PO HS Secukinumab [Cosentyx Pen] 300 mg SQ Q30D Potassium Chloride ER [K-Dur 10] 10 meq PO HS Omeprazole [PriLOSEC] 40 mg PO HS busPIRone HCL [Buspar] 15 mg PO BID Thyroid,Pork [Pullman Thyroid] 60 mg PO DAILY Citalopram Hydrobromide [CeleXA] 40 mg PO HS HYDROcodone/APAP 7.5-325MG [Wenham 7.5] 1 tab PO Q6HR PRN PRN Reason: Pain Discharge Medication List Aspirin 81 mg PO DAILY 08/14/21 [History] Citalopram Hydrobromide [CeleXA] 40 mg PO HS 08/14/21 [History] Liothyronine Sodium [Cytomel] 5 mcg PO DAILY 08/14/21 [History] Omeprazole [PriLOSEC] 40 mg PO HS 08/14/21 [History] Potassium Chloride ER [K-Dur 10] 10 meq PO HS 08/14/21 [History] Secukinumab [Cosentyx Pen] 300 mg SQ Q30D 08/14/21 [History] Thyroid,Pork [Pullman Thyroid] 60 mg PO DAILY 08/14/21 [History] amLODIPine [Norvasc] 5 mg PO HS 08/14/21 [History] busPIRone HCL [Buspar] 15 mg PO BID 08/14/21 [History] lisinopriL [Zestril] 20 mg PO DAILY 08/14/21 [History] HYDROcodone/APAP 7.5-325MG [Wenham 7.5] 1 tab PO Q6HR PRN 04/30/22 [History] Cyclobenzaprine [Flexeril] 5 mg PO TID #90 tablet 05/06/22 [Rx] Gabapentin [Neurontin] 200 mg PO TID #90 cap 05/06/22 [Rx] HYDROcodone/APAP 10-325MG [Wenham 10-325] 1 tab PO Q6HR PRN #56 tab 05/06/22 [Rx] Sennosides/Docusate Sodium [Senna Plus 8.6-50 mg Tablet] 1 each PO DAILY PRN #20 tablet 05/06/22 [Rx] cefaDROXiL [Duricef] 500 mg PO Q12HR 3 Days #6 cap 05/06/22 [Rx] Follow up Appointment(s)/Referral(s): Zuly Sanders MD [Primary Care Provider] - 1 Week Jefferson Gayle DO [Doctor of Osteopathic Medicine] - 2 Weeks Activity/Diet/Wound Care/Special Instructions: Spine Discharge and Recovery Instructions Date of Surgery: 03/05/2022 Diagnosis: L5-S1 spondylosis with stenosis Procedure: L5-S1 minimally invasive transforaminal lumbar interbody fusion Medications: see list All medication refills should be obtained through your primary care doctor or your clinic spine surgeon. Please discuss prescription refills at your follow up appointment. Do not call the hospital for medication refills. Activity: [Encourage ambulation with assist of walker] [OOB 6-8x daily] [PT/OT daily work on balance, strength and mobility] [Up in chair with all meals, OOB all meals] [Shower daily] Brace: Wear LSO back brace when up and about at all times. Do not wear while sleeping or showering. May take breaks from brace while sitting or laying and resting. Dressing: Leave your dressing in place for a total of 3 days post operatively. Then you may remove your dressing and leave open to air. Keep the area clean and if not able to keep area clean, then cover with sterile gauze and tape. Showering: You may shower 3 days after your procedure allowing soap and water to run over incision. Do not scrub. Do not soak. Blot dry. Follow up: Please confirm a follow up appointment with your surgeon 2 weeks post operatively. Please make an appointment to follow up with your PCP in 1-2 weeks after surgery for evaluation 3 phase, 3-week plan POST OP WEEKS 1-3 1. Lifting/carrying/pushing/pulling limited to less than 5 pounds. 2. Do not sit for longer than 15 minutes at one time. Get up and walk around. Prolonged sitting is NOT advised. If you lay down, see if you can tolerate laying down on you front (belly side) 3. Walk for periods of 15 minutes = 1 mile but no longer; do it multiple times times each day. 4.Ice your low back after activity. POST OP WEEKS 3-6 1. Lifting limited to less than 20 pounds. 2. Do not sit for longer than 30 minutes at a time. Frequently change positions. Use a sit-to stand workstation or take frequent breaks from sitting if you have returned to work. 3. Walk for 30 minutes each day. If possible, do these three or more times a day POST OP WEEKS 6+ At your 6-week appointment we will give you a physical therapy referral to focus on a core stabilization and strengthening program. You should also work on leg & buttock strengthening, hamstring & quadriceps stretching, and continue a low impact aerobic activity program such as swimming, walking, or riding a stationary bicycle. During the initial 6 weeks after your surgery, you are at the highest risk of re-injuring your spine. You should generally avoid BLTs (bending, lifting and twisting combination motions) and follow the above guidelines to reduce the chance of reinjury. You can anticipate post op appointments in our office at approximately 3 weeks and 6 weeks after your surgery. INCISION CARE: If your incision is not draining you do NOT need to cover it with a dressing. Keep your incision clean, dry and intact. In most cases, we apply skin glue, aura or sutures to the incision at the time of surgery. This will be like a crust or have the appearance of a scab and will fall off in time on its own. The stitches or aura need to be removed at 3 weeks post op appointment. You may begin to shower 3 days after surgery (this allows the glue to jones well). However, please avoid scrubbing the incision site or peeling off any of the skin glue. This will ensure optimal healing of your incision. Also, during this time avoid soaking the incision area in water - this includes swimming pools, hot tubs or baths. No ointments, lotions or oils on the incision until your surgeon allows. Leave aura, sutures or glue in place. Neurological dysfunction that comes on suddenly can also be a sign of a stroke. Below some common symptoms of a stroke are listed: B - balance difficulty such as sudden onset walking or leaning to one side - NEW E - eye problem such as sudden double vision or trouble seeing on one side - NEW F - Facial weakness or numbness on one side - NEW A - Arm or leg weakness or numbness on one side - NEW S - Slurred speech or difficulty with word finding - NEW T - Time is BRAIN! Call 911 as soon as you recognize these symptoms Diet: Consume a regular diet rich in vegetables and lean protein such as chicken or fish. You should consume in a ratio of approximately 20% fats|40% carbohydrates|40%protein. Vegetables, sweet potatoes, brown rice or quinoa are examples of good carbohydrates. Chips, white bread, cookies and sweets/sugar are examples of bad carbohydrates. Limit your bad carbs, go wild with good carbs. "Life's Simple 7" Guidelines as per [place] [employer] These will help you reclaim your life after surgery and joy operator helper in your recovery, keeping in mind your restrictions. (1) Get Active. Physical activity can help people lose weight, control high blood pressure and cholesterol, feel emotionally better, and sleep better. (2) Control Cholesterol. Avoid a diet high in saturated fat, trans fat, & cholesterol. Limit whole milk & cream, ice cream, butter, egg yolks, processed meats (like sausage and hot dogs), and fatty meats. Choose healthy foods that are low in saturated fat, trans fat and cholesterol which include: Fruits and vegetables, fiber rich grain products (like whole grain pasta and brown rice), lean meat such as chicken, fish, nuts, seeds, and legumes. (3) Eat Better. Eat small portions. Shop at the grocery with a list and do not stray from it. Tips for a healthy diet include: Limit sodium intake to less than 1500mg daily, avoid prepackaged, processed, and fast foods, choose a diet rich in fruits, vegetables, and whole grain, high fiber foods, and limit saturated & cholesterol in your diet. (4) Manage Blood Pressure. If you have high blood pressure, you should have a cuff at home so that you can check your blood pressure regularly. Be sure you have a good cuff. An arm one is generally better than a wrist one. Bring the cuff to a doctor's appointment to validate that the measurements that your cuff are taking are accurate. Take your blood pressure twice daily when you are sitting down and relaxing. Record the numbers in a log and bring this log with you to your doctors' appointments. (5) Lose Weight if your BMI is above 25. A healthy BMI is between 19-25. To calculate Your BMI, you may use a Standard BMI Calculator on the NIH BMI website: <www.nhlbi.nih.gov/guidelines/obesity/BMI/bmicalc.htm>. Weigh oneself daily. If you are overweight, set a goal to lose weight. A pound a week loss if needed is a good target. (6) Reduce Blood Sugar. Limit foods and liquids with "added sugars." (Added sugars include sucrose, fructose, glucose, maltose, dextrose, high fructose corn syrup, corn syrup, concentrated fruit juice and honey). (7) Stop Smoking. If you smoke, quitting smoking is one of the best things that you can do for your health. Smoking increases your risk of heart attack, stroke, and peripheral vascular disease, which is a build-up of plaque in your arteries. Please discard all the cigarettes and lighters in your house. Have a plan for what you will do when you have the urge to smoke. Direct and second- hand smoke shortens your life as well as the lives of your family, friends and others around you. For your health and the health of those around you, please consider quitting! Proper Bending Body Mechanics: Maintain a wide stance with one foot slightly in front of the other. Keep your back straight. Bend utilizing the strength in your hips and knees. Do not bend at the waist. Maintain the lifted object at your waist-level close to your body. Avoid lifting weight that causes immediately pain or pain anywhere in the body afterwards. Smoking/Nicotine If there was ever one thing that you could do to increase your overall health, decrease your risk of cardiovascular problems by about 39% the second you make the choice, it is to STOP SMOKING. Your body's most instant gratification is the second you stop smoking. We have all heard the studies, read the articles but it is true, smoking is extremely bad for your overall health, and moreover it is detrimental to your bone health. Nicotine, IN ANY FORM, kills bone cells, prevents your body from healing fractures, and significantly prolongs healing after surgery. In spine surgery specifically, it increases your risk of not healing your bones to create a fusion and increases your risk of having a revision surgery due to this up to 60%. I know it is hard. I know it feels impossible. But there are ways. Take control of your life. We are here to help you through it. And when you are ready, ask us and we can direct you to help if you desire. Use the START Plan to Quit Smoking (please visit the Helpguide.org website listed below for more information): S = Set a quit date. Choose a date within the next 2 weeks, so you have enough time to prepare without losing your motivation to quit. If you mainly smoke at work, quit on the weekend, so you have a few days to adjust to the change. T = Tell family, friends, and co-workers that you plan to quit. Let your friends and family in on your plan to quit smoking and tell them you need their support and encouragement to stop. Look for a quit belkis who wants to stop smoking as well. You can help each other get through the rough times. A = Anticipate and plan for the challenges you'll face while quitting. Most people who begin smoking again do so within the first 3 months. You can help yourself make it through by preparing ahead for common challenges, such as nicotine withdrawal and cigarette cravings. R = Remove cigarettes and other tobacco products from your home, car, and work. Throw away all your cigarettes (no emergency pack!), lighters, ashtrays, and matches. Wash your clothes and freshen up anything that smells like smoke. Shampoo your car, clean your drapes and carpet, and steam your furniture. T = Talk to your doctor about getting help to quit. Your doctor can prescribe medication to help with withdrawal and suggest other alternatives. If you can't see a doctor, you can get many products over the counter at your local pharmacy or grocery store, including the nicotine patch, nicotine lozenges, and nicotine gum. Resources for Quitting Smoking: <https://www.[place].gov/documents/[facility]/Quit_Tobacco_Resources_for_patients_313 480_7.pdf> Supplementation: Take recommended dosages of Vitamin D and Calcium to help fortify your bones and help them to heal. See your health maintenance packet for dosages and recommended levels. DVT/VTE prophylaxis: You will be given compression stockings from the hospital. Wear these daily for the first two weeks after surgery. You may take them off at night. You may be prescribed a medication to help thin your blood. Take this as directed. If you are not prescribed this medication, early and frequent ambulation has been shown to be the best prophylaxis to deep vein thrombosis and sequelae related to this event. Discharge Disposition: HOME SELF-CARE
[2022-05-06 10:23] LABS: Basophils # (A) 0.03 X 10*3/uL (0.00-0.10); Basophils % (A) 0.2 %; Eosinophils # (A) 0.02 X 10*3/uL (0.04-0.35); Eosinophils % (A) 0.1 %; HCT 34.7 % (37.2-46.3); HGB 11.7 g/dL (12.0-15.0); Immature Grans, Automated 0.5 %; Lymphocytes # (A) 1.83 X 10*3/uL (0.90-5.00); Lymphocytes % (A) 12.6 %; MCH 29.6 pg (27.0-32.0); MCHC 33.7 g/dL (32.0-37.0); MCV 87.8 fL (80.0-97.0); Mean Platelet Volume 10.5 fL (9.5-12.2); Monocytes # (A) 1.23 X 10*3/uL (0.20-1.00); Monocytes % (A) 8.4 %; NRBC Per 100 WBC 0 /100 WBCS (0.0-0.0); Neutrophils # (A) 11.39 X 10*3/uL (1.80-7.70); Neutrophils % (A) 78.2 %; Platelet Count 259 X 10*3/uL (140-440); RBC 3.95 X 10*6/uL (4.10-5.20); RDW 13.4 % (11.5-14.5); WBC 14.57 X 10*3/uL (4.50-10.00)
[2022-05-06 10:24] LABS: African American GFR (CKD) 103.9 (60.0-200.0); Anion Gap 11.5 mmol/L (10.00-18.00); BUN/Creat Ratio 6.71 Ratio (12.00-20.00); Blood Urea Nitrogen 4.7 mg/dL (9.0-27.0); Calcium 9.3 mg/dL (8.7-10.3); Carbon Dioxide 27.5 mmol/L (20.0-27.5); Non-African American GFR(CKD) 89.7 (60.0-200.0); Potassium 3.9 mmol/L (3.5-5.5)
--- NOTE | 2022-05-07 01:09 | PN ---
PROGRESS NOTE DATE OF SERVICE: 05/06/2022 SUBJECTIVE: This is a 66-year-old woman who was admitted after L5-S1 surgery, is improving significantly. No chest pain. No palpitations. No fever. OBJECTIVE: VITAL SIGNS: Pulse 70, blood pressure 138/80, respirations 20. CHEST: Clear to auscultation. CARDIOVASCULAR: S1, S2. ABDOMEN: Soft. NERVOUS SYSTEM: No focal deficits. LABORATORY DATA: Reviewed. ASSESSMENT: 1. Status post L5-S1 posterolateral interbody fusion for degenerative joint disease. 2. Hypertension. 3. Psoriasis. 4. History of nicotine dependence. 5. Family history of deep venous thrombosis. RECOMMENDATIONS: Recommend to continue current management and symptomatic treatment. Pain management. Otherwise, DVT prophylaxis. Repeat labs as an outpatient. Closely follow with primary physician after discharge. The rest of the recommendations per Orthopedic Surgery. Further recommendations to follow. NABIL / CRISTAL: [id number] /
== END 2022-05-06 11:19 | disposition home or self-care (01) ==
LOC: OR 05:44 → 5NMEDONC 09:33 → OR 05-06 07:28 → 5NMEDONC 05-06 07:28
PROVIDERS: ADMIT Orthopaedic Surgery; ATTEND Orthopaedic Surgery
DX: M47.27 Other spondylosis with radiculopathy, lumbosacral region (principal); M48.07 Spinal stenosis, lumbosacral region; M41.56 Other secondary scoliosis, lumbar region; F17.210 Nicotine dependence, cigarettes, uncomplicated; L40.50 Arthropathic psoriasis, unspecified; R73.03 Prediabetes; I10 Essential (primary) hypertension; M51.35 Other intervertebral disc degeneration, thoracolumbar region; M25.78 Osteophyte, vertebrae; I70.0 Atherosclerosis of aorta; J98.11 Atelectasis; Z79.899 Other long term (current) drug therapy; Z98.1 Arthrodesis status; Z96.651 Presence of right artificial knee joint; Z82.49 Family history of ischemic heart disease and other diseases of the circulatory system; Z79.82 Long term (current) use of aspirin; Z88.2 Allergy status to sulfonamides; Z88.5 Allergy status to narcotic agent
CPT/HCPCS: 96365; 96372; 96375; 97162; 86900; 86901; 80048; 85025; 85610; 86850; 72100; 72131; 22612; 22853; 20930; 20936; G0378; C1713 ×2; C1762 ×2; J2250; J0330; J1100; J2710; J0690 ×2; J2405; J3010; J1644 ×3; J2704; J1170 ×2; J2001

== ENCOUNTER → 2022-08-07 | Outpatient (CLI) | payer MEDICARE ==
--- NOTE | 2022-08-07 14:38 | US ---
EXAMINATION TYPE: US kidneys/renal and bladder DATE OF EXAM: 08/07/2022 COMPARISON: US 2021 CLINICAL HISTORY: R10.9 ABD PAIN. Abdominal pain on the left side. Hx cholecystectomy. EXAM MEASUREMENTS: Right Kidney: 9.8 x 4.8 x 4.0 cm Left Kidney: 11.8 x 4.8 x 5.0 cm Right Kidney: Anechoic area seen laterally at mid: 1.1 x 1.1 x 0.8 cm. Left Kidney: No hydronephrosis or masses seen Bladder: Appears wnl Bilateral Jets seen: Yes IMPRESSION: Simple cyst right kidney.
== END | disposition home or self-care (01) ==
LOC: RADUSWWP 14:06
PROVIDERS: ATTEND Family Medicine
DX: N28.1 Cyst of kidney, acquired (principal)
CPT/HCPCS: 76770

== ENCOUNTER → 2022-08-20 | Outpatient (CLI) | payer MEDICARE ==
[2022-08-20 16:06] LABS: African American GFR (CKD) 79.7 (60.0-200.0); Albumin 4.3 g/dL (3.8-4.9); Albumin/Globulin Ratio 1.79 (1.60-3.17); BUN/Creat Ratio 9.08 Ratio (12.00-20.00); Blood Urea Nitrogen 7.9 mg/dL (9.0-27.0); Calcium 9.7 mg/dL (8.7-10.3); Globulin 2.4 g/dL (1.6-3.3); HDL Cholesterol 33.1 mg/dL (40.00-60.00); Non-African American GFR(CKD) 68.7 (60.0-200.0); Potassium 4.5 mmol/L (3.5-5.5); Total Bilirubin 0.3 mg/dL (0.30-1.20); Total Protein 6.7 g/dL (6.2-8.2)
[2022-08-20 16:30] LABS: Chol/HDL Ratio 7.1 Ratio
[2022-08-20 19:21] LABS: Microalbumin Creatinine Ratio <30 mg/g Creat (0-30)
== END | disposition home or self-care (01) ==
LOC: LABWHC1 09:25
PROVIDERS: ATTEND Internal Medicine Endocrinology, Diabetes & Metabolism
DX: E03.8 Other specified hypothyroidism (principal); E11.65 Type 2 diabetes mellitus with hyperglycemia
CPT/HCPCS: 36415; 80053; 80061; 82043; 82570; 83036; 83721; 84443

== ENCOUNTER → 2022-08-20 | Outpatient (CLI) | payer MEDICARE ==
[2022-08-20 10:18] LABS: African American GFR (CKD) >90 (>60 ml/min/1.73 sqM); Blood Urea Nitrogen 8 mg/dL (7-17); Non-African American GFR(CKD) 88 (>60 ml/min/1.73 sqM)
--- NOTE | 2022-08-20 11:48 | CT ---
EXAMINATION TYPE: CT abdomen pelvis w con DATE OF EXAM: 08/20/2022 COMPARISON: None HISTORY: left side abd pain CT DLP: 1033 mGycm CONTRAST: CT scan of the abdomen and pelvis is performed with Oral Contrast and with IV Contrast, patient injec tatiana with 77 mL of Isovue 300. FINDINGS: LUNG BASES-: No visible nodule. No infiltrate. LIVER/GB: The gallbladder is surgically absent. No space occupying hepatic lesion. Biliary tree is of normal caliber. PANCREAS: No inflammation. No distinct mass. SPLEEN: No splenic enlargement. No lesion seen. ADRENALS: No nodule. No thickening. KIDNEYS/BLADDER: No hydronephrosis. No nephrolithiasis. No distinct renal mass. Urinary bladder g rossly unremarkable. BOWEL: Normal appendix. Normal bowel caliber. No inflammation. GENITAL ORGANS: No gross abnormality. LYMPH NODES: No greater than 1cm abdominal or pelvic lymph nodes are appreciated. AORTA: No significant abnormality. OSSEOUS STRUCTURES: No significant abnormality is seen. OTHER: No significant additional abnormality is seen. IMPRESSION: 1. No acute intra-abdominal or intrapelvic process appreciated.
== END | disposition home or self-care (01) ==
LOC: RADCTMAIN 09:40
PROVIDERS: ATTEND Family Medicine
DX: R10.9 Unspecified abdominal pain (principal); I10 Essential (primary) hypertension
CPT/HCPCS: 82565; 84520; 74177; 36415; Q9967

== ENCOUNTER → 2022-10-22 | Outpatient (CLI) | payer MEDICARE ==
--- NOTE | 2022-10-22 09:45 | FL ---
ESOPHOGRAM. HISTORY: Dysphagia Esophagram was performed per the air contrast technique. The patient swallowed barium and effervesce nt crystals without difficulty or delay. Esophageal peristalsis and motility appear to be within normal limits. There is no evidence for filling defect, mass or diverticulum. No hiatal hernia seen. Subsequently single contrast cervical esophagram was performed which fails demonstrate evidence for a spiration penetration or mass. There is mild hypertrophy of the cricopharyngeus musculature at the C4 -5 level. ACDF changes cervical spine. IMPRESSION: There is mild hypertrophy of the cricopharyngeus musculature at the C4-5 level.
== END | disposition home or self-care (01) ==
LOC: RADUSWWP 08:41
PROVIDERS: ATTEND Family Medicine
DX: R13.19 Other dysphagia (principal); R10.13 Epigastric pain; M47.812 Spondylosis without myelopathy or radiculopathy, cervical region
CPT/HCPCS: 74220

== ENCOUNTER → 2023-02-12 | Outpatient (CLI) | payer MEDICARE ==
--- NOTE | 2023-02-12 13:37 | MM ---
Reason for Exam: Clinical finding. Last screening mammogram was performed 11 month(s) ago. Patient History: Menarche at age 12. First Full-Term at age 22. Left ovary removed at age 34. Right ovary removed at age 34. Hysterectomy at age 34. Postmenopausal. Estrogen, starting at age 34 for 15 years. Hormonal Contraceptives, starting at age 19 for 1 year. Paternal aunt had breast cancer, age 70. Risk Values: Maida 5 year model risk: 1.5%. NCI Lifetime model risk: 5.0%. Tissue Density: The breast tissue is heterogeneously dense. This may lower the sensitivity of mammography. Findings: Analyzed By CAD. New nodule is seen in upper left breast 9 cm from the nipple measuring 9 mm not identified on the cc view. Ultrasound is recommended. The right breast demonstrates chronic nodularity. Benign appearing stable desiccation is noted. Overall Assessment: Incomplete: need additional imaging evaluation, BI-RAD 0 Management: Diagnostic Breast Ultrasound of the left breast. . Results were given to the patient verbally at the time of exam. Patient should continue monthly self-breast exams. A clinical breast exam by your physician is recommended on an annual basis. This exam should not preclude additional follow-up of suspicious palpable abnormalities. Note on Maida scores and lifetime risk: 1. A Maida score greater than 3% is considered moderate risk. If this is the case, consider specialist referral to assess eligibility for a risk reducing agent. 2. If overall lifetime risk for the development of breast cancer is 20% or higher, the patient may qualify for future screening with alternating mammogram and breast MRI. Electronically signed and approved by: Angel Chiang M.D. Radiologis
--- NOTE | 2023-02-12 14:35 | USB ---
Reason for Exam: Additional evaluation requested from abnormal screening. Patient History: Menarche at age 12. First Full-Term at age 22. Left ovary removed at age 34. Right ovary removed at age 34. Hysterectomy at age 34. Postmenopausal. Estrogen, starting at age 34 for 15 years. Hormonal Contraceptives, starting at age 19 for 1 year. Paternal aunt had breast cancer, age 70. Risk Values: Maida 5 year model risk: 1.5%. NCI Lifetime model risk: 5.0%. Technique: Method: Targeted. Prior Study Comparison: 10/21/2020 Bilateral Screening Mammogram, [facility]. 03/17/2022 Bilateral MG 3D screening mammo w/cad, [facility]. 03/24/2022 Bilateral MG 3D work up w/cad HELEN, [facility]. Findings: The upper section of the breast of the left breast, the axilla of the left breast and the retroareolar of the left breast were scanned. 8mm lymph node identified may reflect mammographic abnormality. No additional solid or cystic mass seen. Overall Assessment: Probably benign, BI-RAD 3 Management: Diagnostic Mammogram of the left breast. A clinical breast exam by your physician is recommended on an annual basis and results should be correlated with mammographic findings. This exam should not preclude additional follow-up of suspicious palpable abnormalities. Results were given to the patient verbally at the time of exam. Electronically signed and approved by: Angel Chiang M.D. Radiologis
--- NOTE | 2023-02-12 14:56 | BD ---
EXAMINATION TYPE: Axial Bone Density DATE OF EXAM: 02/12/2023 CLINICAL HISTORY: 67 years old Female. ICD-10 CODE: Z78.0 menopause Height: 61.5in Weight: 141lb FRAX RISK QUESTIONS: Family History (Parent hip fracture): yes Secondary Osteoporosis: 3. Menopause before 45: yes Current Tobacco Use: yes RISK FACTORS HISTORY OF: Surgery to Spine/Hip(right/left)/Wrist (right/left): lumbar fusion, luis carpal tunnel When: 2021 Family History of Osteoporosis: yes Active: yes Diet low in dairy products/other sources of calcium: yes Postmenopausal woman: yes Take estrogen and/or progesterone medications: yes, none current How long: about 3-4 years MEDICATIONS: Thyroid Medications: Which medication: Levothyroxine [place] thyroid How Lon+ years Additional Medications: bp med, cholesterol med, reflux med Additional History: Aissatou disease, psoriatic arthritis EXAM MEASUREMENTS: Bone mineral densitometry was performed using the [employer] System. Bone mineral density about the R hip (g/cm2): 0.658 Bone mineral density about the L hip (g/cm2): 0.695 T Score values are as follows: -----R Neck: -2.8 -----L Neck: -2.4 -----R Total: -2.8 -----L Total: -2.5 Z Score values are as follows: -----R Neck: -1.2 -----L Neck: -0.8 -----R Total: -1.4 -----L Total: -1.1 Bone mineral density has: Decreased 22.8% since study of: 02-17-2006 FRAX%s: The graph provided illustrates a 18.7% chance for a major osteoporotic fx and a 8% chance for the hips probability for fx in 10 years time. IMPRESSION: Osteoporosis (T Score less than -2.5). There is increased fracture risk and therapy is usually indicated based on age. Re-Screen 1-2 years. NOTE: T-SCORE=SD OF THE YOUNG ADULT MEAN.
== END | disposition home or self-care (01) ==
LOC: RADBDWWP 12:52
PROVIDERS: ATTEND Family Medicine
DX: R92.8 Other abnormal and inconclusive findings on diagnostic imaging of breast (principal); M81.0 Age-related osteoporosis without current pathological fracture; Z78.0 Asymptomatic menopausal state; Z80.3 Family history of malignant neoplasm of breast
CPT/HCPCS: 77080; 77066; 76642; G0279; 77062

== ENCOUNTER → 2023-02-12 | Outpatient (CLI) | payer MEDICARE ==
[2023-02-12 17:20] LABS: ALT 10 U/L (8-44); AST 17 U/L (13-35); Albumin 4.5 d/dL (3.8-4.9); Albumin/Globulin Ratio 1.73 Ratio (1.60-3.17); Alkaline Phosphatase 103 U/L (41-126); Blood Urea Nitrogen 8.8 mg/dL (9.0-27.0); Calcium 9.9 mg/dL (8.7-10.3); Chloride 100 mmol/L (96-109); Chol/HDL Ratio 7.18 Ratio; Globulin 2.6 d/dL (1.6-3.3); Glucose 90 mg/dL (70-110); LDL Cholesterol,Calculated 136.6 mg/dL (0.0-131.0); Potassium 4.1 mmol/L (3.5-5.5); Sodium 140 mmol/L (135-145); Total Bilirubin 0.5 mg/dL (0.3-1.2); Total Protein 7.1 d/dL (6.2-8.2)
== END | disposition home or self-care (01) ==
LOC: LABWHC1 11:41
PROVIDERS: ATTEND Internal Medicine Endocrinology, Diabetes & Metabolism
DX: E11.9 Type 2 diabetes mellitus without complications (principal); E03.8 Other specified hypothyroidism
CPT/HCPCS: 36415; 80053; 80061; 83036; 83721; 84443

== ENCOUNTER → 2023-03-23 | Outpatient (CLI) | payer MEDICARE ==
[2023-03-23 19:07] LABS: Basophils # (A) 0.05 X 10*3/uL (0.00-0.10); Basophils % (A) 0.5 %; Eosinophils # (A) 0.16 X 10*3/uL (0.04-0.35); Eosinophils % (A) 1.7 %; HGB 13.6 g/dL (12.0-15.0); Lymphocytes # (A) 2.42 X 10*3/uL (0.90-5.00); Lymphocytes % (A) 26.4 %; MCH 27.3 pg (27.0-32.0); MCHC 32.4 g/dL (32.0-37.0); MCV 84.3 FL (80.0-97.0); Mean Platelet Volume 10.2 FL (9.5-12.2); Monocytes # (A) 0.63 X 10*3/uL (0.20-1.00); Monocytes % (A) 6.9 %; NRBC Per 100 WBC 0 X 10*3/uL (0.00-0.01); Neutrophils # (A) 5.86 X 10*3/uL (1.80-7.70); Neutrophils % (A) 64.2 %; Platelet Count 350 X 10*3/uL (140-440); RBC 4.98 X 10*6/uL (4.10-5.20); RDW 14.4 % (11.5-14.5); WBC 9.15 X 10*3/uL (4.50-10.00)
[2023-03-24 01:31] LABS: ALT 11 U/L (8-44); AST 17 U/L (13-35)
== END | disposition home or self-care (01) ==
LOC: LABWHC1 14:53
PROVIDERS: ATTEND Dermatology MOHS-Micrographic Surgery
DX: L40.0 Psoriasis vulgaris (principal)
CPT/HCPCS: 36415; 82565; 84450; 84460; 85025; 86480

== ENCOUNTER → 2023-09-02 | Outpatient (CLI) | payer MEDICARE ==
--- NOTE | 2023-09-03 07:26 | CA ---
Transthoracic Echo Report Name: Amanda Costello Age: 68 Gender: F : 1955 Exam Date: 09/02/2023 14:01 Exam Location: [place] [facility] Ht (in): 62 Wt (lb): 145 Ordering Physician: Zuly Sanders MD Attending/Referring Phys: Instrument Maker Natalia Perdomo RDCS Procedure CPT: Indications: R06.09 Other forms of dyspnea Cardiac Hx: Technical Quality: Fair Contrast 1: Total Dose (mL): Contrast 2: Total Dose (mL): MEASUREMENTS (Male / Female) Normal Values 2D ECHO LV Diastolic Diameter PLAX 3.1 cm 4.2 - 5.9 / 3.9 - 5.3 cm LV Systolic Diameter PLAX 2.3 cm IVS Diastolic Thickness 1.4 cm 0.6 - 1.0 / 0.6 - 0.9 cm LVPW Diastolic Thickness 1.4 cm 0.6 - 1.0 / 0.6 - 0.9 cm LV Relative Wall Thickness 0.9 RV Internal Dim ED PLAX 2.2 cm LA Volume 40.5 cm??? 18 - 58 / 22 - 52 cm??? LA Volume Index 23.6 cm???/m??? 16 - 28 cm???/m??? M-MODE Aortic Root Diameter MM 2.4 cm LA Systolic Diameter MM 3.2 cm LA Ao Ratio MM 1.3 AV Cusp Separation MM 1.9 cm DOPPLER AV Peak Velocity 136.1 cm/s AV Peak Gradient 7.4 mmHg AV Mean Velocity 93.8 cm/s AV Mean Gradient 3.9 mmHg AV Velocity Time Integral 26.8 cm LVOT Peak Velocity 103.4 cm/s LVOT Peak Gradient 4.3 mmHg LVOT Velocity Time Integral 18.3 cm MV Area PHT 2.6 cm??? Mitral E Point Velocity 52.2 cm/s Mitral A Point Velocity 90.3 cm/s Mitral E to A Ratio 0.6 MV Deceleration Time 293.4 ms MV E' Velocity 7.0 cm/s Mitral E to MV E' Ratio 7.5 TR Peak Velocity 172.6 cm/s TR Peak Gradient 11.9 mmHg Right Ventricular Systolic Press 16.9 mmHg FINDINGS Left Ventricle Moderately increased left ventricular wall thickness. Left ventricular cavity size normal. Normal left ventricular systolic function with no obvious regional wall motion abnormalities. Left ventricular ejection fraction is estimated at 55-60 %. Grade 1 diastolic dysfunction. Right Ventricle Normal right ventricular size and function. Right ventricular systolic pressure within normal limits. Right Atrium Normal right atrial size. Left Atrium Normal left atrial size. Mitral Valve Structurally normal mitral valve. Mild mitral annular calcification. Mild mitral regurgitation. Aortic Valve Trileaflet aortic valve. No aortic valve stenosis or regurgitation. Tricuspid Valve Structurally normal tricuspid valve. Mild tricuspid regurgitation. Pulmonic Valve Structurally normal pulmonic valve. Pericardium No pericardial effusion. Aorta Normal size aortic root and proximal ascending aorta. CONCLUSIONS LVH with preserved systolic function Previewed by: Dr. Aleksey Irene MD (Electronically Signed) Final Date: 03 September 2023 07:25
== END | disposition home or self-care (01) ==
LOC: RADECHMAIN 13:45
PROVIDERS: ATTEND Family Medicine
DX: I51.7 Cardiomegaly (principal); R06.09 Other forms of dyspnea
CPT/HCPCS: 93306

== ENCOUNTER → 2023-09-03 | Outpatient (CLI) | payer MEDICARE ==
--- NOTE | 2023-09-03 12:55 | CA ---
Exercise Stress Test Report Name: Amanda Costello Exam Date: 09/03/2023 09:22 Exam Location: [place] Stress Ht (in): 62 Wt (lb): 142 BSA: 1.65 Ordering Phys: Zuly Sanders MD Referring Phys: ROSE Technologist: TRENT ESCALERA Age: 68 Gender: F : 1955 Procedure CPT: Indications: R06.09 Other forms of dyspnea ICD-10 Codes: Patient History: FELIX, DM, CHOL, FAMILY HX, TOB Medications: LITHYRONINE, THYROID, CITALOPRAM, LISINOPRIL, BUSPIRONE, POTASSIUM, AMLODIPINE, ASPIRIN, RABEPRAZOLE, ABILIFY Meds past 24 hrs: Pretest Chest Pain: STRESS TEST Gama Protocol Exercise Duration (min:sec): 06:[address] Depressions (mm): Angina Score: Bella Score: Resting HR (bpm): 72 Peak HR (bpm): 120 Resting BP (mmHg): 128 / 88 Peak BP (mmHg): 180 / 101 MPHR: 151 Target HR: 128 % MPHR: 79 METS: 9.4 Total Dose: Peak Dose: Atropine: Double Product: 55312 BP Response: Stress Termination: PATIENT REQUESTED TO STOP Stress Symptoms: No chest pain or symptoms Stress Summary: ECG ANALYSIS Resting ECG: Stress ECG: CONCLUSIONS Baseline heart is 60 beats a minute, Baseline blood pressure 128/88 mmHg be central EKG shows sinus rhythm and normal cardiac intervals and ST segments Patient excised a Gama protocol for 7 minutes no symptoms noted Peak heart rate 111 beats a minute Peak blood pressure 178/87 mmHg No ECG evidence for ischemia Impression mild chronotropic incompetence No ECG evidence of ischemia or arrhythmia Average exercise capacity Dr. Aleksey Irene MD (Electronically Signed) Final Date: 03 September 2023 12:54
== END | disposition home or self-care (01) ==
LOC: RADNMMAIN 08:34
PROVIDERS: ATTEND Family Medicine
DX: R06.09 Other forms of dyspnea (principal)
CPT/HCPCS: 93017

== ENCOUNTER → 2023-09-27 | Outpatient (CLI) | payer MEDICARE ==
[2023-09-27 15:58] LABS: Hepatitis B Surface AB- Quant 3.5 mIU/mL
[2023-09-27 16:01] LABS: Hepatitis B Surface Antigen Nonreactive (Nonreactive); Hepatitis C IgG Antibody Nonreactive (Nonreactive)
== END | disposition home or self-care (01) ==
LOC: LABWHC1 10:25
PROVIDERS: ATTEND Dermatology MOHS-Micrographic Surgery
DX: L40.0 Psoriasis vulgaris (principal); Z79.899 Other long term (current) drug therapy
CPT/HCPCS: 36415; 86704; 86706; 86803; 87340

== ENCOUNTER → 2024-04-11 | Outpatient (CLI) | payer MEDICARE ==
--- NOTE | 2024-04-11 10:44 | CTL ---
EXAMINATION TYPE: CT Low Dose Lung DATE OF EXAM ORDERED: 04/11/2024 COMPARISON: No direct comparisons CLINICAL INDICATION: Female, 68 years old with history of nicotine dependence; PHH, tobacco use 5 cig arettes a day, Lung cancer screening, History of Smoking/tobacco use. TECHNIQUE: Low dose computed tomography scan was performed through the chest at 1 mm thick sections a nd reconstructed images in multiple planes at 1 mm and [address] DLP: 109.[address] CTDI: 3.3 mGy Automated exposure control for dose reduction was used. CT DIAGNOSTIC QUALITY: Satisfactory FINDINGS: Nodules: No clinically significant pulmonary nodules. LUNGS: COPD: Severity: None Fibrosis: Severity: None Lymph nodes: None Other findings: None RIGHT PLEURAL SPACE: Effusion: None Calcification: None Thickening: None Pneumothorax: None LEFT PLEURAL SPACE: Effusion: None Calcification: None Thickening: None Pneumothorax: None HEART: Heart Size: Normal Coronary Calcification: Small Pericardial Effusion: None OTHER FINDINGS: Upper abdomen: Hypoattenuating appearance of the liver consistent with fatty infiltration. Postcholec ystectomy changes. Bony thorax: Partial visualization of anterior cervical fusion hardware. Moderate multilevel degenera tive disc disease. 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 IMPRESSION: 1. No clinically significant pulmonary nodules. 2. Hepatic steatosis. 3. Ectasia of the ascending thoracic aorta measuring up to 3.[address] LUNG RAD AND CT CHEST RECOMMENDATION: Lung-Rad 1 Negative: Continue annual screening with LDCT in 12 months. S Modifier (other clinically significant findings): None [facility], , 04/11/2024 10:42 AM
--- NOTE | 2024-04-11 10:58 | MM ---
Reason for Exam: Screening (asymptomatic). Last mammogram was performed 1 year(s) and 2 month(s) ago. Patient History: Menarche at age 12. First Full-Term at age 22. Left ovary removed at age 34. Right ovary removed at age 34. Hysterectomy at age 34. Postmenopausal. Estrogen, starting at age 34 for 15 years. Hormonal Contraceptives, starting at age 19 for 1 year. Paternal aunt had breast cancer, age 70. Risk Values: Maida 5 year model risk: 1.5%. NCI Lifetime model risk: 4.8%. Prior Study Comparison: 03/17/2022 Bilateral MG 3D screening mammo w/cad, [facility]. 03/24/2022 Bilateral MG 3D work up w/cad [facility], [facility]. 02/12/2023 Bilateral MG 3D diag mammo w/cad [facility], [facility]. Tissue Density: The breasts are heterogeneously dense, which may obscure small masses. Findings: Analyzed By CAD. Right breast: There is no suspicious group of microcalcifications or new suspicious mass. Benign-appearing calcifications right breast. Left breast: There is no suspicious group of microcalcifications or new suspicious mass. Benign-appearing calcifications left breast. Overall Assessment: Benign, BI-RAD 2 Management: Screening Mammogram of both breasts in [address] [facility] will attempt to contact patient to return for supplemental views and ultrasound if indicated. Patient should continue monthly self-breast exams. A clinical breast exam by your physician is recommended on an annual basis. This exam should not preclude additional follow-up of suspicious palpable abnormalities. Note on Maida scores and lifetime risk: 1. A Maida score greater than 3% is considered moderate risk. If this is the case, consider specialist referral to assess eligibility for a risk reducing agent. 2. If overall lifetime risk for the development of breast cancer is 20% or higher, the patient may qualify for future screening with alternating mammogram and breast MRI. [facility], , 04/11/2024 10:55 AM. Electronically signed and approved by: Robert Harman DO
== END | disposition home or self-care (01) ==
LOC: RADMAMWWP 09:08
PROVIDERS: ATTEND Family Medicine
DX: Z12.2 Encounter for screening for malignant neoplasm of respiratory organs (principal); F17.200 Nicotine dependence, unspecified, uncomplicated; F17.210 Nicotine dependence, cigarettes, uncomplicated; Z12.31 Encounter for screening mammogram for malignant neoplasm of breast; Z78.0 Asymptomatic menopausal state; Z80.3 Family history of malignant neoplasm of breast; K76.0 Fatty (change of) liver, not elsewhere classified; Z90.722 Acquired absence of ovaries, bilateral; R92.333 Mammographic heterogeneous density, bilateral breasts
CPT/HCPCS: 71271; 77063; 77067; 94060; 94726; 94729

== ENCOUNTER → 2024-05-25 | Outpatient (CLI) | payer MEDICARE ==
[2024-05-25 15:14] LABS: ALT 18 U/L (8-44); AST 28 U/L (13-35); Chol/HDL Ratio 5.87 Ratio; LDL Cholesterol,Calculated 158.1 mg/dL (0.0-131.0)
== END | disposition home or self-care (01) ==
LOC: LABWHC1 11:05
PROVIDERS: ATTEND Internal Medicine Interventional Cardiology
DX: E78.2 Mixed hyperlipidemia (principal)
CPT/HCPCS: 36415; 80061; 84450; 84460